=== PATIENT | female | born 1995 | race African-American/Black ===

== ENCOUNTER 2022-04-06 07:03 | Emergency (ER) | payer MEDICAID, SELFPAY ==
[2022-04-06 07:05] VITALS: BP 117/90; PULSE 64; RESP 16; TEMP 36.4; O2SAT 100; BMI 24.3
--- NOTE | 2022-04-06 07:19 | EX.ED.DYSGE1 ---
HPI History of Present Illness Chief Complaint: Nausea/Vomiting/Diarrhea Detail of Chief Complaint: Nausea, diarrhea with abdominal pain Informant: patient Onset/Context/Timing Onset: Today (The diarrhea started today) and Days (The abdominal pain is a chronic issue and has been worked up.) Context: Sudden Onset Timing: Intermittent Quality: Crampy Location: Mostly upper abdomen Current Severity: Gone Maximum Severity: Moderate Worsened by: Nothing Relieved by: Nothing Associated Symptoms Associated Symptoms: Nausea and diarrhea Narrative Narrative: Patient is a 26-year-old female who is seropositive for rheumatoid arthritis who has undergone outpatient work-up through the [facility] for her abdominal pain. In February she had an elevated lipase. Ultrasound was obtained. There was no abnormality noted of the pancreas. These test were performed on March 12. Patient presently complains of nausea. She denies vomiting. She denies fever, chills night sweats. She does complain of thirst dry mouth. She had a blueberry at 0600. She has not had anything to eat since last evening. She does endorse diarrhea. She had one episode this morning. There was no blood or mucus in the diarrhea. She states her chiropractor was ill. She last saw her chiropractor 2 to 3 weeks ago. She also complains of lightheadedness has been intermittent over the past several days. She denies headache, visual, ocular auditory symptoms. She denies urologic symptoms. Prior similar symptoms: Yes Recent Illness/Hospitalization: Yes [facility] Medical History Rheumatoid arthritis Home Medications famotidine 20 mg tablet (Pepcid) 20 mg PO BID 04/06/22 [History Last Taken Unknown] golimumab 50 mg/0.5 mL subcutaneous pen injector (Simponi) mg subcut QMONTH 04/06/22 [History Last Taken Unknown] Allergy/AdvReac Type Severity Reaction Status Date / Time No Known Allergies Allergy Verified 04/06/22 07:07 Surgical History no surgical history no surgical history Social History (Updated 04/06/22 @ 07:[address] Tommy Gould MD) household members: none Smoking Status: Never smoker substance use type: does not use ROS ROS ED Constitutional Constitutional ED: Denies chills, fever(s), subjective, sweats or weight loss Eyes Eyes: Denies blurry vision or change in vision ENT ENT ED: Denies ear pain, rhinorrhea or sore throat Cardiovascular Cardiovascular: Denies chest pain or palpitations Respiratory/Chest Respiratory/Chest: Denies cough, dyspnea or dyspnea on exertion Gastrointestinal Gastrointestinal: Reports abdominal pain, diarrhea and nausea; Denies constipation, melena or vomiting Genitourinary Genitourinary ED: Denies dysuria, hematuria or urinary frequency Musculoskeletal Musculoskeletal: Reports arthralgias and other Details: Patient denies joint swelling. ; Denies back pain, myalgias or neck pain Integumentary Denies rash Neurologic Neurologic: Reports weakness; Denies headache(s) or paresthesias Psychiatric Psychiatric: Reports anxiety and other Details: Per outside records patient has history of generalized anxiety disorder. Endocrine Endocrinology: Denies cold intolerance or heat intolerance Hematologic/Lymphatic Hematologic/Lymphatic: Reports systems reviewed and no addt'l complaints, except as documented EXAM Physical Exam Const Vital Signs: 04/06/22 07:05 Temperature 97.6 F L Temperature Source Temporal Pulse Rate 64 Respiratory Rate 16 Blood Pressure 117/90 H Blood Pressure Mean 99 Pulse Ox 100 Oxygen Delivery Method Room Air Positive well nourished and well developed General Appearance ED: well developed and NAD; Negative for cyanotic, diaphoretic or pallor HEENT Reports dry mucous membranes HEENT Narrative: Head is atraumatic normocephalic. Ears normal. Nares patent. There is no drainage. Posterior pharynx is normal. Mouth ED: Yes dry mucous membranes Mouth: dry mucous membranes Eyes PERRL and EOMs intact bilaterally General Eye ED: Negative for pale conjunctiva or scleral icterus Neck no lymphadenopathy, supple and no JVD Resp normal respiratory effort and clear to auscultation bilaterally Cardio regular rate, regular rhythm, S1 normal heart sound, S2 normal heart sound and no murmurs GI normal to inspection, nondistended, normoactive bowel sounds, non-tender, non-distended and no masses; Negative for hepatosplenomegaly Auscultation: hypoactive bowel sounds Back/Spine no CVA tenderness Back/Spine Narrative: Inspection of the back is normal Extremity normal to inspection General Extremety ED: Negative for edema or tenderness General Extremity: Negative for edema Neuro oriented x3, CN's II-XII intact bilaterally and no sensory deficits noted Sensorium / Orientation: alert Psych Mood & Affect: depressed Skin no rashes or lesions noted, no wounds and skin turgor normal General Skin Exam: Negative for jaundice or pallor MDM MDM MDM Narrative Medical decision making narrative: Patient had labs in February. BUN and creatinine on March 12 were normal. Transaminases and bilirubin were normal. Because patient had slight elevation lipase ultrasound of the abdomen right upper quadrant was obtained. Pancreas had a normal sonographic appearance. Liver was normal. Right kidney was negative for hydronephrosis. Gallbladder was normal. Patient had H. pylori test which was negative as well. Patient presents with decreased appetite and diarrhea. Clinically she is mildly dehydrated with dry buccal mucosa and tongue. Since she reports orthostatic symptoms and has not had anything to eat or drink since last night because she claims to feel nauseous anytime she attempts to eat an IV was placed. She will see 1 L of normal saline. She received Zofran for her nausea and Imodium for her diarrhea. Laboratory studies were not repeated since patient is under the age of 40, on no diuretics or immunosuppressive meds and based on literature labs are not indicated. Plan is to reassess after IV infusion. Patient was reassessed at 0855. Patient states she is no longer nauseous. She has had no diarrhea. Her lightheadedness has improved. The liter has not completely infused. Will discharge after the liter of normal saline has infused. Discharge Plan Triage Chief Complaint: Nausea/Vomiting/Diarrhea ED Provider: Tommy Gould Dx/Rx/DC Orders Clinical Impression: Abdominal pain, Nausea alone, Diarrhea, Acute dehydration, Orthostatic dizziness Instructions: ED Diarrhea, Unknown Cause Prescriptions: No Action famotidine [Pepcid] 20 mg Tablet 20 mg PO BID Simponi 50 mg/0.5 mL Pen Injector SUBCUT QMONTH Primary Care Provider: Chetna Healy [employer]OUS [employer]ION[employer]IES TE[employer]ER Referrals: Chetna Healy [employer]OUS EXCEPTIONALITIES TEACHER, [employer]OUS [employer]IONALITIES TEACHER-[facility] [Primary Care Provider] - 1-2 Days if not improving Disposition Disposition: Home, Self Care
[2022-04-06] MEDS: Loperamide 2 MG Capsule 4 MG PO (07:20)
[2022-04-06] MEDS: 0.9% Normal Saline 1,000 ML 1000 ML IV (07:29)
[2022-04-06] MEDS: Ondansetron 4 MG/2 ML Vial IV (07:30)
[2022-04-06 09:46] VITALS: BP 108/86; PULSE 69; RESP 16; O2SAT 99
== END 2022-04-06 09:47 | disposition home or self-care (01) ==
PROVIDERS: Emergency Provider Emergency Medicine; PCP Nurse Practitioner; Visit Provider Emergency Medicine
DX: R10.9 Unspecified abdominal pain (principal); M06.9 Rheumatoid arthritis, unspecified; E86.0 Dehydration; R42 Dizziness and giddiness; R19.7 Diarrhea, unspecified; R11.2 Nausea with vomiting, unspecified
CPT/HCPCS: 96361; 96374; 99283; J7030; A4216; J2405

== ENCOUNTER → 2023-04-01 | Outpatient (CLI) | payer MEDICAID, SELFPAY ==
--- OUTSIDE RECORDS SUMMARY | 2023-04-01 08:59 | XMS RPT_ITS | CCD ---
Author Name Unknown Address [address] [place] [address] Organization [facility] Care Team Providers [employer] Guard Name Role Phone Roberto HARTLEY, Travis Galan Primary Care Provider [phone] OLDER, CHETNA Referring Unavailable ALEJANDRO, SHABNAM Primary Care Unavailable Roberto HARTLEY, Travis Galan Primary Care Provider [phone] Older, Chetna M Unavailable Davonte Graves Unavailable Unavailabl e ANAHI BAIG Referring Unavailable ALEJANDRO, SHABNAM Primary Care Unavailable HALLEY COHN Attending Unavailable ALEJANDRO, SHABNAM Primary Care Unavailable OLDER, CHETNA Referring Unavailable ALEJANDRO, SHABNAM Primary Care Unavailable OLDER, CHETNA Attending Unavailable ALEJANDRO, SHABNAM Primary Care Unavailable OLDER, CHETNA Referring Unavailable ALEJANDRO, SHABNAM Primary Care Unavailable OLDER, CHETNA Referring Unavailable ALEJANDRO, SHABNAM Primary Care Unavailable OLDER, CHETNA Attending Unavailable ANAHI BAIG Referring Unavailable ALEJANDRO, SHABNAM Primary Care Unavailable ANAHI BAIG Referring Unavailable ALEJANDRO, SHABNAM Primary Care Unavailable ANAHI BAIG Attending Unavailable ANAHI BAIG Referring Unavailable ALEJANDRO, SHABNAM Primary Care Unavailable ALEJANDRO, SHABNAM Primary Care Unavailable OLDER, CHETNA Attending Unavailable ALEJANDRO, SHABNAM Attending Unavailable ALEJANDRO, SHABNAM Primary Care Unavailable ALEJANDRO, SHABNAM Primary Care Unavailable HALLEY COHN Referring Unavailable ANAHI BAIG Attending Unavailable ALEJANDRO, SHABNAM Primary Care Unavailable OLDER, CHETNA Referring Unavailable ALEJANDRO, SHABNAM Primary Care Unavailable OLDER, CHETNA Referring Unavailable ALEJANDRO, SHABNAM Primary Care Unavailable OLDER, CHETNA Attending Unavailable Franchesca Salinas Attending Unavailable ALEJANDRO, SHABNAM Primary Care Unavailable LISA GAGNON Attending Unavailable ALEJANDRO, SHABNAM Primary Care Unavailable ALEJANDRO, SHABNAM Primary Care Unavailable LISA GAGNON Attending Unavailable ALEJANDRO, SHABNAM Primary Care Unavailable MANJU COOL Attending Unavailable ALEJANDRO, SHABNAM Primary Care Unavailable Star, Dr. Davonte Mullen Attending Una rayo Steven, Franchescarhett Carey Attending Unavailab kimberly SALINAS MD, FRANCHESCA Attending Unavailable NICHOLE DAWKINS Referring Unavailyohannes SALINAS MD, FRANCHESCA Attending Unavailable BRAD HARTLEY, FRANCHESCA Referring Unavailable [employer]ITEK AGRISCIENCE TECHNOLOGY INSTRUCTOR, NATHALIE Attending Unavailable BSEISO , FRANCHESCA Attending Unavailable [employer] AGRISCIENCE TECHNOLOGY INSTRUCTOR, NATHALIE Attending Unavailable [employer] AGRISCIENCE TECHNOLOGY INSTRUCTOR, NATHALIE Referring Unavailable BSESUZY HARTLEY, FRANCHESCA Attending Unavailable Allergies Allergy Classification Reported Allergen(s) Allergy Type Date of Onset Reaction(s) Facility (20 sources) inFLIXimab; Translations: [INFLIXIMAB] Drug Allergy 1 Shortness of Breath [facility] (20 sources) levocetirizine; Translations: [LEVOCETIRIZINE] Drug Allergy 1 Rash [facility] (20 sources) pecan allergenic extract; Translations: [PECAN NUT] Drug Allergy 1 GI Upset [facility] (20 sources) sulfaSALAzine; Translations: [SULFASALAZINE] Drug Allergy 1 Rash [facility] (20 sources) Sulfonamides (Antibiotic); Translations: [SULFA (SULFONAMIDE ANTIBIOTICS)] Drug Intolerance 1 [facility] (1 source) inFLIXimab Drug Allergy Other [facility] (1 source) Sulfacetamide Drug Allergy Other [facility] Medications Current Medications Medication Drug Class(es) Dates Sig (Normalized) Sig (Original) chlorhexidine gluconate 1.2 mg/ml mouthwash (2 sources) Start: 07-30-2022 End: 08-29-2022 Chlorhexidine Gluconate (PERIOGARD) 0.12 % solution Use 15 mL as instructed twice daily. Rinse around mouth for 30 seconds then expectorate 900 mL 0 07/30/2022 08/29/2022 Active Completed/Discontinued Medications Medication Drug Class(es) Dates Sig (Normalized) Sig (Original) golimumab (20 sources) Tumor Necrosis Factor Micah golimumab (SIMPONI A MOJGAN INTRAVENOUS) Inject intravenously. IV treatment every 8 weeks. 0 Active Problems Active Problems Problem Classification Problem Date Documented Da te Episodic/Chronic Abdominal pain (10 sources) Upper abdominal pain; Translations: [Upper abdominal pain, unspecified] Onset: 03-12-2022 Episodic Anxiety disorders (20 sources) Generalized anxiety disorder; Translations: [Generalized anxiety disorder] Onset: 03-28-2021 03-28-2021 Chronic Cardiac dysrhythmias (20 sources) Postural orthostatic tachycardia syndrome ; Translations: [Other specified cardiac arrhythmias] Onset: 02-22-2021 02-22-2021 Chronic Disorders of teeth and jaw (5 sources) Pain; Translations: [Dental caries, unspecified] Onset: 08-08-2022 Episodic Mood disorders (20 sources) Depressive disorder; Translations: [Depression] Onset: 01-07-2004 03-28-2021 Chronic Other aftercare (3 sources) Patient encounter status; Translations: [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] Episodic Other circulatory disease (1 source) Feeling of lump in throat; Translations: [Other specified symptoms and signs involving the circulatory and respiratory systems] Episodic Other connective tissue disease (2 sources) Pain in right arm; Translations: [Pain in right arm] Episodic Other connective tissue disease (1 source) Pain of left hand; Translations: [Pain in left hand] Episodic Other connective tissue disease (1 source) Pain in right hand; Translations: [Pain in right hand] Episodic Other nervous system disorders (2 sources) Finding of sensation of upper limb; Translations: [Paresthesia of skin] Episodic Other nervous system disorders (1 source) Paresthesia; Translations: [Paresthesia of skin] Episodic Other non-traumatic joint disorders (2 sources) Pain of right wrist; Translations: [Pain in right wrist] Episodic Residual codes; unclassified (1 source) Encounter for prophylactic measures, unspecified; Translations: [Encounter for preventive measure] Onset: 10-25-2022 Episodic Rheumatoid arthritis and related disease (20 sources) Seropositive rheumatoid arthritis; Translations: [Rheumatoid arthritis with rheumatoid factor, unspecified] Onset: 07-11-2020 Chronic Thyroid disorders (20 sources) Goiter; Translations: [Nontoxic goiter, unspecified] Onset: 11-24-2021 Chronic Unclassified (2 sources) FELL AT WORK 07-24-2022 Past or Other Problems Problem Classification Problem Date Documented Da te Episodic/Chronic Nausea and vomiting (5 sources) Nausea; Translations: [Nausea] Onset: 03-12-2022 Episodic Other circulatory disease (1 source) Other specified symptoms and signs involving the circulatory and respiratory systems; Translations: [Globus sensation] Onset: 11-24-2021 Episodic Other connective tissue disease (1 source) Pain in left hand; Translations: [Pain in left hand] Onset: 12-22-2021 Episodic Other connective tissue disease (1 source) Pain in right arm; Translations: [Pain of right upper extremity] Onset: 12-22-2021 Episodic Other connective tissue disease (1 source) Pain in right hand; Translations: [Pain in right hand] Onset: 12-22-2021 Episodic Other nervous system disorders (2 sources) Paresthesia of skin; Translations: [Tingling of right upper extremity] Onset: 12-22-2021 Episodic Other non-traumatic joint disorders (1 source) Pain in right wrist; Translations: [Right wrist pain] Onset: 12-22-2021 Episodic Syncope (4 sources) Syncope; Translations: [Syncope and collapse] Onset: 07-24-2022 07-24-2022 Episodic Results Test Name Value Interpretation Reference Range Facil ity Vital Signs Date Time Vital Sign Value Performing Clinician Facility 10-25-2022 09:40-0400 Diastolic blood pressure 85 mm[Hg] Avelina Adame [facility] Work Phone: [facility] 10-25-2022 09:40-0400 Heart rate 87 /min Avelina Adame [facility] Work Phone: [facility] 10-25-2022 09:40-0400 Systolic blood pressure 113 mm[Hg] Avelina Adame [facility] Work Phone: [facility] 07-24-2022 17:05-0400 Diastolic blood pressure 79 mm[Hg] Chetna Older Other Phone: [facility] 07-24-2022 17:05-0400 Heart rate 72 /min Chetna Older Other Phone: [facility] 07-24-2022 17:05-0400 Respiratory rate 16 /min Chetna Older Other Phone: [facility] 07-24-2022 17:05-0400 SaO2% (BldA) [Mass fraction] 100 % Chetna Older Other Phone: [facility] 07-24-2022 17:05-0400 Systolic blood pressure 101 mm[Hg] Chetna Older Other Phone: [facility] 07-24-2022 14:54-0400 Body height 157.4 cm Chetna Older Other Phone: [facility] 07-24-2022 14:54-0400 Body weight 55 kg Chetna Older Other Phone: [facility] 06-28-2022 10:33-0400 Body height 157.5 cm Anahi Baig MD Work Phone: [facility] 06-28-2022 10:33-0400 Body weight 58.06 kg Anahi Baig MD Work Phone: [facility] 06-28-2022 10:33-0400 Diastolic blood pressure 81 mm[Hg] Anahi Baig MD Work Phone: [facility] 06-28-2022 10:33-0400 Heart rate 84 /min Anahi Baig MD Work Phone: [facility] 06-28-2022 10:33-0400 SaO2% (BldA) [Mass fraction] 100 % Anahi Baig MD Work Phone: [facility] 06-28-2022 10:33-0400 Systolic blood pressure 113 mm[Hg] Anahi Baig MD Work Phone: [facility] 04-18-2022 15:30-0500 Diastolic blood pressure 77 mm[Hg] Halley Cohn MD Work Phone: [facility] 04-18-2022 15:30-0500 Heart rate 86 /min Halley Cohn MD Work Phone: [facility] 04-18-2022 15:30-0500 Respiratory rate 16 /min Halley Cohn MD Work Phone: [facility] 04-18-2022 15:30-0500 SaO2% (BldA) [Mass fraction] 100 % Halley Cohn MD Work Phone: [facility] 04-18-2022 15:30-0500 Systolic blood pressure 122 mm[Hg] Halley Cohn MD Work Phone: [facility] 04-18-2022 15:06-0500 Body temperature 97 [degF] Halley Cohn MD Work Phone: [facility] 04-13-2022 10:38-0500 Body height 157.5 cm Pac 3 Work Phone: [facility] 04-13-2022 10:38-0500 Body weight 59.88 kg Pac 3 Work Phone: [facility] 03-15-2022 13:04-0500 Body height 96.5 cm Anahi Baig MD Work Phone: [facility] 03-15-2022 13:04-0500 Body weight 63.23 kg Anahi Baig MD Work Phone: [facility] 03-15-2022 13:04-0500 Diastolic blood pressure 79 mm[Hg] Anahi Baig MD Work Phone: [facility] 03-15-2022 13:04-0500 Heart rate 93 /min Anahi Baig MD Work Phone: [facility] 03-15-2022 13:04-0500 Systolic blood pressure 118 mm[Hg] Anahi Baig MD Work Phone: [facility] 03-12-2022 13:44-0500 Body weight 63.96 kg Chetnamaribell Healy HUMAN RESOURCES ADVISOR.AGRISCIENCE TECHNOLOGY INSTRUCTOR Work Phone: [facility] 03-12-2022 13:44-0500 Diastolic blood pressure 91 mm[Hg] Chetna Older HUMAN RESOURCES ADVISOR.AGRISCIENCE TECHNOLOGY INSTRUCTOR Work Phone: [facility] 03-12-2022 13:44-0500 Heart rate 86 /min Chetna Older HUMAN RESOURCES ADVISOR.AGRISCIENCE TECHNOLOGY INSTRUCTOR Work Phone: [facility] 03-12-2022 13:44-0500 Respiratory rate 12 /min Chetna Older HUMAN RESOURCES ADVISOR.AGRISCIENCE TECHNOLOGY INSTRUCTOR Work Phone: [facility] 03-12-2022 13:44-0500 Systolic blood pressure 124 mm[Hg] Chetna Older HUMAN RESOURCES ADVISOR.AGRISCIENCE TECHNOLOGY INSTRUCTOR Work Phone: [facility] 01-09-2022 08:42-0500 Diastolic blood pressure 74 mm[Hg] Lisa Mary DMD Work Phone: [facility] 01-09-2022 08:42-0500 Heart rate 69 /min Lisa Mary DMD Work Phone: [facility] 01-09-2022 08:42-0500 Systolic blood pressure 98 mm[Hg] Lisa Mary DMD Work Phone: [facility] 12-20-2021 11:42-0400 Body weight 63.05 kg Chetna Older HUMAN RESOURCES ADVISOR.AGRISCIENCE TECHNOLOGY INSTRUCTOR Work Phone: [facility] 12-20-2021 11:42-0400 Diastolic blood pressure 78 mm[Hg] Chetna Older HUMAN RESOURCES ADVISOR.AGRISCIENCE TECHNOLOGY INSTRUCTOR Work Phone: [facility] 12-20-2021 11:42-0400 Heart rate 68 /min Chetna Older HUMAN RESOURCES ADVISOR.AGRISCIENCE TECHNOLOGY INSTRUCTOR Work Phone: [facility] 12-20-2021 11:42-0400 Respiratory rate 14 /min Chetna Older HUMAN RESOURCES ADVISOR.AGRISCIENCE TECHNOLOGY INSTRUCTOR Work Phone: [facility] 12-20-2021 11:42-0400 Systolic blood pressure 108 mm[Hg] Chetna Older HUMAN RESOURCES ADVISOR.AGRISCIENCE TECHNOLOGY INSTRUCTOR Work Phone: [facility] 07-11-2021 15:19-0400 Body temperature 98.01 [degF] Treatment Stro Work Phone: [facility] 07-11-2021 15:19-0400 Body weight 66.59 kg Treatment Stro Work Phone: [facility] 07-11-2021 15:19-0400 Diastolic blood pressure 54 mm[Hg] Treatment Stro Work Phone: [facility] 07-11-2021 15:19-0400 Heart rate 82 /min Treatment Stro Work Phone: [facility] 07-11-2021 15:19-0400 Respiratory rate 16 /min Treatment Stro Work Phone: [facility] 07-11-2021 15:19-0400 SaO2% (BldA) [Mass fraction] 96 % Treatment Stro Work Phone: [facility] 07-11-2021 15:19-0400 Systolic blood pressure 108 mm[Hg] Treatment Stro Work Phone: [facility] Encounters Encounter Date Encounter Type Care Provider Facility Start: 02-08-2023 End: 02-08-2023 ambulatory NATHALIE VITEK HALEY Facility:[facility] Start: 02-07-2023 End: 02-07-2023 ambulatory NATHALIE VITEK HALEY Facility:[facility] Start: 11-27-2022 End: 12-26-2022 ambulatory FRANCHESCA SALINAS MD Facility:[facility] Start: 10-25-2022 End: 10-25-2022 ambulatory TRAVIS ALEJANDRO Facility:[id number] Start: 10-25-2022 Encounter for dental examination and cleaning without abnormal findings TRAVIS ALEJANDRO [facility] Start: 10-25-2022 End: 10-25-2022 Patient encounter procedure Avelina Adame [facility] Work Phone: Dentistry Procedures Date Procedure Procedure Detail Performing Clinician Start: 10-25-2022 PERIODIC ORAL EVALUATION - ESTABLISHED PATIENT Ralf Gamboa DMD Work Phone: Start: 10-25-2022 PERIODONTAL PROBING Ralf Gamboa DMD Work Phone: Start: 10-25-2022 PROPHYLAXIS - ADULT Ralf Gamboa DMD Work Phone: Start: 08-08-2022 LIMITED ORAL EVALUATION - PROBLEM FOCUSED Ralf Douglas Bee DMD Work Phone: Start: 07-24-2022 End: 07-24-2022 EKG impression Davonte Graves Start: 07-06-2022 Ct abdomen w/contrast material Anahi hernandez MD Work Phone: Start: 04-18-2022 Esophagogastroduodenoscopy transoral diagnostic Anahi Baig MD Work Phone: Start: 03-12-2022 Us abdominal real time w/image limited Chetna Older HUMAN RESOURCES ADVISOR.AGRISCIENCE TECHNOLOGY INSTRUCTOR Work Phone: Start: 01-09-2022 2D ORAL/FACIAL PHOTOGRAPHIC IMAGE OBTAINED INTRA-ORALLY OR EXTRA-ORALLY Ralf Douglas Bee DMD Work Phone: Start: 01-09-2022 COMPREHENSIVE ORAL EVALUATION - NEW OR ESTABLISHED PATIENT Ralf Douglas Bee DMD Work Phone: Start: 12-22-2021 Nerve conduction studies 5-6 studies Chetna Older HUMAN RESOURCES ADVISOR.AGRISCIENCE TECHNOLOGY INSTRUCTOR Work Phone: Start: 11-24-2021 Us soft tissue head & neck real time imge docm Chetna Older HUMAN RESOURCES ADVISOR.AGRISCIENCE TECHNOLOGY INSTRUCTOR Work Phone: Plan of Treatment Date Care Activity Detail Author Start: 01-10-2027 Dental X-Ray: FMX/[facility] Dental X-Ray: FMX/[facility] Start: 10-27-2023 Dental Perio Probing Dental Perio Probing [facility] Start: 10-27-2023 Dental X-Ray: [facility]-Ray: [facility] Start: 04-26-2023 Dental Oral Exam Dental Oral Exam [facility] Start: 04-26-2023 Dental Prophylaxis Dental Prophylaxis [facility] Start: 10-28-2022 PAP TESTING PAP TESTING [facility] Start: 10-26-2022 Influenza vaccination [facility] Start: 09-16-2022 Urine microalbumin profile [facility] Start: 03-12-2022 End: 05-12-2022 Amylase [Enzymatic activity/volume] in Serum or Plasma [facility] Work Phone: Immunizations Immunization Date Immunization Notes Care Provider Fa lyndon 11-09-2019 influenza virus vacc ine, unspecified formulation Ct (I-Stat) Work Phone: [facility] 10-09-2012 varicella virus vaccine Chanelle tment Stro Work Phone: [facility] Work Phone: 09-25-2012 pneumococcal polysaccharide vaccine, 23 valent Treatment Stro Work Phone: [facility] Work Phone: 09-16-2012 tetanus toxoid, redu brenda diphtheria toxoid, and acellular pertussis vaccine, adsorbed Treatment Stro Work Phone: [facility] Work Phone: 03-13-2010 influenza virus vacc ine, unspecified formulation Treatment Stro Work Phone: [facility] Work Phone: 11-24-1998 diphtheria, tetanus toxoids and acellular pertussis vaccine Treatment Stro Work Phone: [facility] Work Phone: 11-24-1998 trivalent poliovirus vaccine, live, oral Treatment Stro Work Phone: [facility] Work Phone: 10-27-1997 measles, mumps and rubella virus vaccine Treatment Stro Work Phone: [facility] Work Phone: 04-08-1995 DTP-Haemophilus influenzae type b conjugate vaccine Treatment Stro Work Phone: [facility] Work Phone: 01-01-1995 measles, mumps and rubella virus vaccine Treatment Stro Work Phone: [facility] Work Phone: 01-01-1995 varicella virus vaccine Chanelle tment Stro Work Phone: [facility] Work Phone: 10-01-1994 hepatitis B vaccine, pediatric or pediatric/adolescent dosage Treatment Stro Work Phone: [facility] Work Phone: 07-02-1994 trivalent poliovirus vaccine, live, oral Treatment Stro Work Phone: [facility] Work Phone: 06-01-1994 DTP-Haemophilus influenzae type b conjugate vaccine Treatment Stro Work Phone: [facility] Work Phone: 03-30-1994 DTP-Haemophilus influenzae type b conjugate vaccine Treatment Stro Work Phone: [facility] Work Phone: 03-30-1994 trivalent poliovirus vaccine, live, oral Treatment Stro Work Phone: [facility] Work Phone: 01-26-1994 DTP-Haemophilus influenzae type b conjugate vaccine Treatment Stro Work Phone: [facility] Work Phone: 01-26-1994 hepatitis B vaccine, pediatric or pediatric/adolescent dosage Treatment Stro Work Phone: [facility] Work Phone: 01-26-1994 trivalent poliovirus vaccine, live, oral Treatment Stro Work Phone: [facility] Work Phone: 1993 hepatitis B vaccine, pediatric or pediatric/adolescent dosage Treatment Stro Work Phone: [facility] Work Phone: Payers Date Payer Category Payer Medicaid [employer] [place] [id number] 2019-Present [phone] [address] [address] [place] [address] Medicaid [id number] 2019 Medicaid [id number] 2019 Medicaid [id number] 2008 Unknown [id number] 1993 Unknown [id number] 1993 Unknown [id number] 1993 Unknown [id number] 1993 Unknown [id number] 1993 Unknown [id number] 1993 Unknown [id number] 1993 Unknown [id number] 1993 Unknown [id number] Social History Date Type Detail Facility Start: 11-22-2021 Tobacco smoking status NHIS Never smoked tobacco [facility] Work Phone: Start: 03-28-2021 End: 06-28-2022 Alcohol intake Current non-drinker of alcohol (finding) [facility] Start: 03-22-2021 History SDOH Alcohol Frequency 1 [facility] Start: 03-22-2021 End: 04-24-2022 History SDOH Alcohol Std Drinks 98 [facility] Start: 03-22-2021 End: 04-24-2022 History SDOH Social Connections Membership 2 [facility] Start: 03-22-2021 End: 04-24-2022 History SDOH Social Connections Living 5 [facility] Start: 03-22-2021 History SDOH Physical Activity DPW 0 [facility] Start: 1995 Sex Assigned At Not on file [facility] Start: 08-22-2021 End: 01-09-2022 Exposure to SARS-CoV-2 (event) Not sure [facility] Work Phone: Start: 11-22-2021 Tobacco use and exposure Smokeless tobacco non-user [facility] Start: 04-24-2022 History SDOH Stress 4 [facility] Tobacco smoking consumption unknown [facility] Start: 04-24-2022 End: 06-28-2022 History of Social function [facility] Start: 04-24-2022 End: 06-28-2022 Social connection and isolation panel [facility] How often do you get together with friends or relatives? Patient refused [facility] Do you belong to any clubs or organizations such as jain groups, unions, fraternal or athletic groups, or school groups? No [facility] Are you now , , , , never or living with a partner? [facility] Do you feel stress - tense, restless, nervous, or anxious, or unable to sleep at night because your mind is troubled all the time - these days [OSQ] Rather much [facility] (I/We) worried wheth er (my/our) food would run out before (I/we) got money to buy more. DK or Refused [facility] Clinical Notes 09-16-2012 to 11-27-2022 Avelina Adame, [facility] - 10/25/2022 10:01 AM Manju Johnson DDS - 10/25/2022 9:40 AM EDTTelephone Encounter - Neisha Abdalla RN - 09/12/2022 4:44 PM EDTPatient Instructions Note Date & Type Note Facility 11-27-2022 Note Chief Complaint INITIAL CONSULT - LOW WBC Reason for Consultation Leukopenia History of Present Illness This 26-year-old patient referred by rheumatology to evaluate leukopenia. She has been diagnosed with rheumatoid arthritis since 2017 and had in the past been treated with methotrexate but in 2020 switch to Humira and then Remicade without response and sulfasalazine with poor tolerance and has been since been switched to Simponi every 2 months since 2020. She had had normal blood counts and in January 2022 had a white count of 4.9, hemoglobin of 13.3, hematocrit of 41.1, and platelets of 378,000. Over the following few months, in March, May, and July 2022, her white count had dropped to 3.1, 3.1, and 3.4 respectively with percent neutrophils of 33% on each of these occasions and absolute neutrophil count of about 1.1. She had not been exposed to new medications, had not had any significant illness or recurrent infections during that time. Of note her hemoglobin had also dropped during the same period from 13.3 to 12.4 between January 2022 and July 2022. Her platelets remain normal in the 300,000 range. There has been no monocytosis. On the most recent CBC however on August 30, 2022, she was noted to have normalization of the white count at 5.8 with ANC of 2000, and a borderline lymphocytosis at 3.1 with percent lymphocytes at 53.4%. The patient is generally asymptomatic. Her rheumatoid arthritis has been well controlled with Simponi. Denies any fever chills night sweats self-palpated adenopathy unexplained weight loss abdominal pain fullness discomfort diarrhea edema in the legs paresthesias. She does describe some Raynaud's-like phenomenon upon cold exposure. No abnormal bleeding or easy bruisability. Of note she had a recent CT scan of the abdomen pelvis on July 09, 2022 that showed 6 mm hypodense pancreatic uncinate process lesion possibly a pseudocyst. No adenopathy or splenomegaly. The patient also underwent EGD in March 2022 which were normal. Review of Systems Constitutional: Negative except HPI Eyes: Negative except HPI ENMT: Negative except HPI Respiratory: Negative except HPI Cardiovascular: Negative except HPI Gastrointestinal: Negative except HPI Genitourinary: Negative except HPI Heme: Negative except HPI Endocrine: Negative except HPI Integumentary: Negative except HPI Immunologic: Negative except HPI Musculoskeletal: Negative except HPI Neurologic: Negative except HPI Psychiatric: Negative except HPI Physical Exam Vitals & Measurements T: 36.1 ?C (Tympanic) HR: 97 (Peripheral) RR: 16 BP: 94/74 SpO2: 98% WT: 58.4 kg WT: 58.4 kg (Dosing) BMI: 22.81 General: Alert oriented not in distress HEENT: Atraumatic normocephalic, oral mucosa shows a whitish layer over the tongue possible thrush. Neck: No adenopathy Respiratory: Equal air entry Cardiac: Regular rate and rhythm normal S1-S2 Abdomen: No organomegaly or masses Extremities: No edema Neurological: Grossly nonfocal Psychiatric: Quiet slightly flat affect Assessment/Plan This Visit Diagnosis 1. Leukopenia D72.819 This has evolved in March and seems to have reversed in July this year. Patient said she has never had this before. I told her low white count and rheumatoid arthritis has a variety of causes including the disease itself as part of an autoimmune phenomenon, or the effect of the medication like Simponi or a superimposed other etiology like a bone marrow disorder or marrow infiltration. There is a modest drop in hemoglobin during the same during the same duration since March but not enough to be significant anemia yet. At this point will obtain basic work-up as listed below but also include hepatitis C antibody and peripheral blood flow cytometry for clonal B cells. She might have a thrush prescribed nystatin. We will also consider HIV and thyroid function after the initial work-up is back. I will inspect the blood smear. We will see her back in about 8 weeks. Ordered: B12 FOLATE, ROUTINE, *Est. 09/18/2022, Order for future visit, Dx: Leukopenia / Seropositive rheumatoid arthritis CBCWD, ROUTINE, *Est. 09/18/2022, Order for future visit, Dx: Leukopenia / Seropositive rheumatoid arthritis COMPMETA, ROUTINE, *Est. 09/18/2022, Order for future visit, Dx: Leukopenia / Seropositive rheumatoid arthritis MATTHEW, ROUTINE, *Est. 09/18/2022, Leukopenia / Seropositive rheumatoid arthritis Hep B Core Antibodies Total, ROUTINE, *Est. 09/18/2022, Order for future visit, Dx: Leukopenia / Seropositive rheumatoid arthritis HEPATITIS B ANTIGEN, ROUTINE, *Est. 09/18/2022, Order for future visit, Dx: Leukopenia / Seropositive rheumatoid arthritis SHAR Quant with FLC, ROUTINE, *Est. 09/18/2022, Order for future visit, Dx: Leukopenia / Seropositive rheumatoid arthritis LDH, ROUTINE, *Est. 09/18/2022, Order for future visit, Dx: Leukopenia / Seropositive rheumatoid arthritis MISC SEND1, ROUTINE, *Est. 09/18/2022, flow for leukemia nad lymphoma Pa (more content not included)... [facility] 10-29-2022 Note HNO ID: [id number] Author: Ralf Gamboa DMD Service: ? Author Type: Dentist Type: Progress Notes Filed: 10/29/2022 5:36 PM Note Text: I have seen and evaluated the patient and discussed the case with the resident physician. I agree with the assessment and plan as documented in the resident?s note. Ralf Gamboa, KELVIN [facility] 10-25-2022 Note HNO ID: [id number] Author: Avelina Adame RDH Service: ? Author Type: Dental Hygienist Type: Progress Notes Filed: 10/25/2022 10:37 AM Note Text: DENTAL HYGIENE VISIT: Adult Prophylaxis 10/25/2022 Rosa Mares HISTORY OF PRESENT ILLNESS: Patient is a 26 [address] of Dr[address] Cool , who presents today for Prophylaxis: 4 bitewings, probing, periodic exam. Periodic exam performed by Dr. Cool . Pain Status: No pain (0 out of 10).. Chief Complaint: Dental Hygiene Visit. Blood pressure 113/85, pulse 87, last menstrual period 03/26/2022.. PAST MEDICAL HISTORY: Reviewed Medical History: No change since last visit. INFORMED CONSENT: The procedure including risks, benefits, options and personnel performing the procedure was discussed with the patient. There are no contraindications to the procedure. Rosa Mares expressed understanding and agreed to proceed. OBJECTIVE: Oral hygiene fair . Localized areas of calculus. Hairy tongue. Discussed brushing her tongue. Recommended an electric toothbrush. ASSESSMENT/TREATMENT: Re-care appointment: 4BWX, Dental Prophylaxis , and Periodic Oral Exam with Avelina Adame Plaque: moderate. Calculus: slight/light. Oral Hygiene Instructions: brushing technique, flossing, brush 2 times per day, and power brush. Last Panoramic Taken: 01/09/22 PLAN: New decay/restorative needs: None. Next Hygiene visit: 6 month prophy, 4 bitewings, periodic exam . Avelina Adame RDH [facility] 10-25-2022 Note HNO ID: [id number] Author: Manju Cool DDS Service: ? Author Type: Resident Type: Progress Notes Filed: 10/25/2022 10:37 AM Note Text: Summary: Hygiene Check I have read and reviewed the hygiene notes and agree with the content. Patient screened for oral cancer and TMD and informed of findings. Oral Cancer Screening: Negative. TMJ: WNL New DDS recommended: - Calculus noted on BW's on 30, 3, 19 - No new decay noted - Reviewed symptoms of #4 with patient, tooth #4 and gums around mandaeism are doing well. Previous treatment plan reviewed and all necessary changes have been made based on today's examination. Confirmed diagnosis and discussed treatment needs with the patient. Patient given opportunity to ask questions with all answered. Manju Cool, LACEY [facility] 10-25-2022 History of Presen t illness Narrative DENTAL HYGIENE VISIT: Adult Prophylaxis 10/25/2022 Rosa Mares HISTORY OF PRESENT ILLNESS: Patient is a 26 [address] of Dr[address] Cool , who presents today for Prophylaxis: 4 bitewings, probing, periodic exam. Periodic exam performed by Dr. Cool . Pain Status: No pain (0 out of 10).. Chief Complaint: Dental Hygiene Visit. Blood pressure 113/85, pulse 87, last menstrual period 03/26/2022.. PAST MEDICAL HISTORY: Reviewed Medical History: No change since last visit. INFORMED CONSENT: The procedure including risks, benefits, options and personnel performing the procedure was discussed with the patient. There are no contraindications to the procedure. Rosa Mares expressed understanding and agreed to proceed. OBJECTIVE: Oral hygiene fair . Localized areas of calculus. Hairy tongue. Discussed brushing her tongue. Recommended an electric toothbrush. ASSESSMENT/TREATMENT: Re-care appointment: 4BWX, Dental Prophylaxis , and Periodic Oral Exam with Avelina Adame Plaque: moderate. Calculus: slight/light. Oral Hygiene Instructions: brushing technique, flossing, brush 2 times per day, and power brush. Last Panoramic Taken: 01/09/22 PLAN: New decay/restorative needs: None. Next Hygiene visit: 6 month prophy, 4 bitewings, periodic exam . Avelina Adame RDH Summary: Hygiene Check I have read and reviewed the hygiene notes and agree with the content. Patient screened for oral cancer and TMD and informed of findings. Oral Cancer Screening: Negative. TMJ: WNL New DDS recommended: - Calculus noted on BW's on 30, 3, 19 - No new decay noted - Reviewed symptoms of #4 with patient, tooth #4 and gums around mandaeism are doing well. Previous treatment plan reviewed and all necessary changes have been made based on today's examination. Confirmed diagnosis and discussed treatment needs with the patient. Patient given opportunity to ask questions with all answered. Manju Cool DDS documented in this encounter [facility] 09-26-2022 Note HNO ID: [id number] Author: Ralf Gamboa DMD Service: ? Author Type: Dentist Type: Progress Notes Filed: 09/26/2022 5:12 PM Note Text: I have seen and evaluated the patient and discussed the case with the resident physician. I agree with the assessment and plan as documented in the resident?s note. Ralf Gamboa DMD [facility] 09-26-2022 Note HNO ID: [id number] Author: Manju Cool DDS Service: ? Author Type: Resident Type: Progress Notes Filed: 09/26/2022 4:34 PM Note Text: Summary: Restorative: 4MO Composite Cheondoism Adjustment: #4- MO SUBJECTIVE: CC: _I was told at my hygiene appointment that my filling is rough and it might be why my gums hurt around there_ . OBJECTIVE: Pt identity confirmed. Reviewed/Updated Med Hx. Clinical evaluation completed. Radiographic evaluation: Findings: Radiographs used from hygiene on 08/08/22. No radiographs made today. The procedure including risks, benefits, options and personnel performing the procedure was discussed with the patient. There are no contraindications to the procedure. Rosa Mares expressed understanding and agreed to proceed. ASSESSMENT: Patient was told at previous hygiene visit that her mandaeism on tooth #4 (MO) was rough and possibly a food trap causing increased irritation to her gums. The patient wanted assessment of the mandaeism to see if anything could be done to have the best prognosis of the mandaeism. The path of withdraw from the lingual interproximal contact of tooth #4 is very thin and wedge-like, displaying an easy target for food and other debris to become trapped inter-proximally between #4 and #5. Took photo of tooth (uploaded to chart) and showed patient via radiographs and intraoral photo that the mandaeism is sealed well and shows no sign of needing replaced. However, that the mandaeism contour on the lingual could be a food trap and further irritate her gums. PLAN: (Plan A) Explained to patient that we could adjust the contour on the lingual of tooth #4 to better adapt and decrease the risk of food becoming trapped and gingival irritation. Explained to patient that if this did not solve the issue, (Plan B) that a slot prep could be made on the mesial and additional restorative material could be added to also provide a good prognosis for the tooth. These plans were described to patient in depth, patient given opportunity to address questions. Patient was informed that if Plan A and Plan B did not go accordingly then Plan C of replacing the mandaeism entirely could occur. Patient chose to do Plan A today and the tooth was adjusted on the lingual with a flame carbide. Patient was not anesthetized. Occlusion and contact was confirmed. Patient dismissed in a pleasant manner. Patient informed that if the adjustment completed today was not suffice to inform us at her hygiene appointment (scheduled this month), and we can continue to Plan B or Plan C to address the mandaeism. Next Hygiene visit: 4BWX, Dental Prophylaxis , and Periodic Oral Exam. Assisted by: Doris Hwang Supervised by: Dr. Delbert Cool, LACEY [facility] 09-12-2022 Miscellaneous Notes Attempted to reach the patient at the contact number that they provided [phone] (home) . Unable to speak with patient so without identifying the patient the following information was left on their voice mail: Date of procedure, location and report time A message was left informing the patient/patient field support representative they must have a responsible adult accompany them to their procedure; and remain in the endoscopy area until they are discharged. Failure to have a responsible adult accompany the patient to their procedure appointment prevents the use of sedation or anesthesia for their procedure; and can result in cancellation of the procedure NPO instructions were reviewed. Instructions to contact their primary care provider regarding their medications and which medications to stop in preparation for their procedure Instructions to completely read and follow the written instructions that they recieved regarding their procedure. Number to call with questions or concerns [phone] Number to call to cancel their procedure [phone] Neisha Abdalla RN documented in this encounter [facility] 08-08-2022 Note HNO ID: [id number] Author: Ralf Gamboa DMD Service: ? Author Type: Dentist Type: Progress Notes Filed: 08/08/2022 6:39 PM Note Text: I have seen and evaluated the patient and discussed the case with the resident physician. I agree with the assessment and plan as documented in the resident?s note. Ralf Gamboa DMD [facility] 08-08-2022 Note HNO ID: [id number] Author: Lisa Gagnon DMD Service: ? Author Type: Resident Type: Progress Notes Filed: 08/08/2022 5:40 PM Note Text: Limited Dental Examination: NAME: Rosa Mares MR#: [id number] DATE: 08/08/2022 HISTORY OF PRESENT ILLNESS: This is a 26 year old female who presents with a complaint of pain around gums on the upper right. OBJECTIVE: General appearance: healthy, alert, pleasant, mild distress. Limited dental exam: No external buccal swelling, No submandibular or submental swelling, and No trismus Void #4 MO with food impaction between #4 and #5 Radiographs taken:Panoramic No, FMX No, Bitewings Yes, Pa # 4 ASSESSMENT: Patient reports pain on the upper right and bleeding when flossing and brushing. Upon conversation it is discovered patient is brushing teeth too aggressively. Oral hygiene counseling given. Void noted on buccal of existing composite #4 MO. Food impaction noted. Patient sensitive to probing around #4. Cheondoism to be redone with symptoms to be monitored. PLAN: #4 MO. Continue Chlorhexidine PRN. RX: None. Pt discharged alert and oriented. NV: # 4 MO Assisted by: Fabiola Shannon Supervised by: Dr. Bee Gagnon DMD [facility] 08-08-2022 History of Presen t illness Narrative I have seen and evaluated the patient and discussed the case with the resident physician. I agree with the assessment and plan as documented in the resident s note. Ralf Gamboa DMD Images from the original note were not included. Limited Dental Examination: NAME: Rosa Mares MR#: [id number] DATE: 08/08/2022 HISTORY OF PRESENT ILLNESS: This is a 26 year old female who presents with a complaint of pain around gums on the upper right. OBJECTIVE: General appearance: healthy, alert, pleasant, mild distress. Limited dental exam: No external buccal swelling, No submandibular or submental swelling, and No trismus Void #4 MO with food impaction between #4 and #5 Radiographs taken:Panoramic No, FMX No, Bitewings Yes, Pa # 4 ASSESSMENT: Patient reports pain on the upper right and bleeding when flossing and brushing. Upon conversation it is discovered patient is brushing teeth too aggressively. Oral hygiene counseling given. Void noted on buccal of existing composite #4 MO. Food impaction noted. Patient sensitive to probing around #4. Cheondoism to be redone with symptoms to be monitored. PLAN: #4 MO. Continue Chlorhexidine PRN. RX: None. Pt discharged alert and oriented. NV: # 4 MO Assisted by: Fabiola Shannon Supervised by: Dr. Bee Gagnon DMD documented in this encounter [facility] 07-30-2022 Miscellaneous Notes Returned patient's call. Patient reports pain around gingiva around isolated maxillary tooth that began around 3-4 weeks ago. Patient believes a gap has formed where tooth and gingiva should be. Patient to be seen for follow-up in office to assess. Patient given opportunity to ask questions with all answered. RX sent to patient's pharmacy Chlorhexidine Gluconate (PERIOGARD) 0.12 % solution Use 15 mL as instructed twice daily. Rinse around mouth for 30 seconds then expectorate Normal, Disp-900 mL, R-0 Lisa Gagnon DMD documented in this encounter [facility] 07-30-2022 Miscellaneous Notes Left voicemail to return patient's call. Lisa Gagnon DMD documented in this encounter [facility] 07-06-2022 Note HNO ID: [id number] Author: RT Saravanan(R) Service: ? Author Type: Medical Claims Processor Type: Progress Notes Filed: 07/06/2022 2:53 PM Note Text: Radiology Service Progress Note DATE OF SERVICE: July 06, 2022 TIME: 2:52 PM PATIENT IDENTITY VERIFICATION COMPLETED USING TWO (2) STANDARD IDENTIFIERS: Name and Date of confirmed by patient verbally. FALL SCREENING: Has the patient had 2 falls in the last year or 1 fall with injury or currently using an Ambulatory Assistive Device (Walker, Cane, Wheelchair, Crutches, etc.)? No PATIENT GENDER DATA: Female. status: : No status: NO. PATIENT RELEVANT IMPLANT DATA REVIEWED: Yes ALLERGIES: Reviewed and unchanged CONTRAST ALLERGY: NO. EXAM: CT -CONTRAST INDUCED NEPHROPATHY RISK FACTORS: Not applicable CREATININE: Creatinine Date Value Ref Range Status 03/12/2022 0.76 0.58 - 0.96 mg/dL Final 07/11/2021 0.93 0.58 - 0.96 mg/dL Final 01/12/2021 0.89 0.58 - 0.96 mg/dL Final Estimated Glomerular Filtration Rate Date Value Ref Range Status 03/12/2022 110 >=60 mL/min/1.73m? Final Comment: Estimated Glomerular Filtration Rate (eGFR) is calculated using the 2020 CKD-EPI creatinine equation. This equation utilizes serum creatinine, sex, and age as parameters. The creatinine assay has traceable calibration to isotope dilution-mass spectrometry. Refer to KDIGO guidelines for clinical interpretation. In patients with unstable renal function, e.g. those with acute kidney injury, the eGFR may not accurately reflect actual GFR. eGFR- Date Value Ref Range Status 01/12/2021 >60 Final Comment: Note: On 04/22/2021, the eGFR calculation will be updated to the NKF-ASN Task Force recommended 2020 CKD-EPI creatinine equation which does not include a race variable. For more information or to access a 2020 CKD-EPI calculator, visit the National Kid[employer] website at kidney.org/professionals/kdoqi/g fr_calculator. P.O.C.T. RESULTS: POC done: Yes, See Lab Tab July 06, 2022 TREATMENT: N/A PERIPHERAL IV DATA: Ambulatory: A peripheral IV was started in the Left antecubital site with a Angio cath: 22 gauge. RADIOLOGY DEPARTMENT: CT; Exam(s) Completed: Abdomen SIGNATURE: RT Renetta(R) PATIENT NAME: Rosa Mares DATE: July 06, 2022 TIME: 2:52 PM [facility] 07-06-2022 History of Presen t illness Narrative Radiology Service Progress Note DATE OF SERVICE: July 06, 2022 TIME: 2:52 PM PATIENT IDENTITY VERIFICATION COMPLETED USING TWO (2) STANDARD IDENTIFIERS: Name and Date of confirmed by patient verbally. FALL SCREENING: Has the patient had 2 falls in the last year or 1 fall with injury or currently using an Ambulatory Assistive Device (Walker, Cane, Wheelchair, Crutches, etc.)? No PATIENT GENDER DATA: Female. status: : No status: NO. PATIENT RELEVANT IMPLANT DATA REVIEWED: Yes ALLERGIES: Reviewed and unchanged CONTRAST ALLERGY: NO. EXAM: CT -CONTRAST INDUCED NEPHROPATHY RISK FACTORS: Not applicable CREATININE: Creatinine Date Value Ref Range Status 03/12/2022 0.76 0.58 - 0.96 mg/dL Final 07/11/2021 0.93 0.58 - 0.96 mg/dL Final 01/12/2021 0.89 0.58 - 0.96 mg/dL Final Estimated Glomerular Filtration Rate Date Value Ref Range Status 03/12/2022 110 >=60 mL/min/1.73m Final Comment: Estimated Glomerular Filtration Rate (eGFR) is calculated using the 2020 CKD-EPI creatinine equation. This equation utilizes serum creatinine, sex, and age as parameters. The creatinine assay has traceable calibration to isotope dilution-mass spectrometry. Refer to KDIGO guidelines for clinical interpretation. In patients with unstable renal function, e.g. those with acute kidney injury, the eGFR may not accurately reflect actual GFR. eGFR- Date Value Ref Range Status 01/12/2021 >60 Final Comment: Note: On 04/22/2021, the eGFR calculation will be updated to the NKF-ASN Task Force recommended 2020 CKD-EPI creatinine equation which does not include a race variable. For more information or to access a 2020 CKD-EPI calculator, visit the National Kidney Foundation website at kidney.org/professionals/kdoqi/g fr_calculator. P.O.C.T. RESULTS: POC done: Yes, See Lab Tab July 06, 2022 TREATMENT: N/A PERIPHERAL IV DATA: Ambulatory: A peripheral IV was started in the Left antecubital site with a Angio cath: 22 gauge. RADIOLOGY DEPARTMENT: CT; Exam(s) Completed: Abdomen SIGNATURE: RT Renetta(R) PATIENT NAME: Rosa Mares DATE: July 06, 2022 TIME: 2:52 PM documented in this encounter [facility] 06-28-2022 Note HNO ID: [id number] Author: Anahi Baig MD Service: ? Author Type: Physician Type: Progress Notes Filed: 06/28/2022 1:55 PM Note Text: [facility] 06/28/2022 CHIEF COMPLAINT: RUQ abdominal pain HISTORY OF PRESENT ILLNESS: Rosa Mares is a 26 year old female with a history of POTS (diagnosed in 2019), RA (on Simponi) presenting to GI clinic for management of RUQ abdominal pain. Patient was referred by her PCP for abdominal pain. Pain started December 2021. Pain is located RUQ / epigastric / Right back. Timing of the pain is intermittent, was becoming more frequent and severe in time. Can be associated with eating or drinking. Intermittent fasting and improved diet helped symptoms. Associated symptoms include nausea without vomiting. Having daily regular bowel movements. --- Interval history Since last visit, patient underwent EGD 04/18/2022 was normal. Biopsies from stomach negative for H pylori, biopsies from duodenum were negative for celiac sprue. She continues to have the pain. Is taking pepcid BID which has helped somewhat but not fully. Pain continues to be assd with eating / drinking but can also be sporadic. PAST MEDICAL HISTORY: PAST MEDICAL HISTORY Diagnosis Date Arthritis Asthma Resolved - outgrew Dysthymic disorder Resolved Family history of diabetes mellitus (DM) 09/16/2012 Family history of hypertension 09/16/2012 POTS (postural orthostatic tachycardia syndrome) PTSD (post-traumatic stress disorder) ACTIVE PROBLEM LIST Depression Seropositive Rheumatoid Arthritis (Hcc) Pots (Postural Orthostatic Tachycardia Syndrome) Kenny (Generalized Anxiety Disorder) Thyroid Nodule PAST SURGICAL HISTORY: PAST SURGICAL HISTORY Procedure Laterality Date PAST SURGICAL HISTORY OF sinus surgery PAST SURGICAL HISTORY OF wisdom teeth ALLERGIES: ALLERGIES Allergen Reactions Pecan Nut GI Upset Nausea. Remicade [Inflixima* Shortness of Breath Chest pain. Sulfa (Sulfonamide * Rash Sulfasalazine Rash Xyzal [Levocetirizi* Rash FAMILY HISTORY: FAMILY HISTORY Problem Relation Age of Onset other (gestational diabetes) Mother Hypertension Father Other Sleep Disorder Sister mental health other (other) Brother mental health Other Sleep Disorder Brother mental health Diabetes Maternal Grandmother Hypertension Maternal Grandmother Hypertension Maternal Grandfather Prostate Cancer Maternal Grandfather Hypertension Paternal Grandmother Hypertension Paternal Grandfather Emphysema Paternal Grandfather SOCIAL HISTORY: Social History Tobacco Use Smoking status: Never Smokeless tobacco: Never Vaping Use Vaping Use: Never used Substance Use Topics Alcohol use: No Drug use: No CURRENT MEDICATIONS (reviewed w/ pt): Current Outpatient Medications Medication Sig sertraline (ZOLOFT) 25 mg tablet Take 1 tablet by mouth once daily. hydrOXYzine HCl (ATARAX) 25 mg tablet Take 1 tablet by mouth every 6 hours as needed for itching/rash or anxiety. golimumab (SIMPONI ARIA INTRAVENOUS) Inject intravenously. IV treatment every 8 weeks. No current facility-administered medications for this visit. PHYSICAL EXAM: Vital signs: BP 113/81 Pulse 84 Ht 157.5 cm (5' 2 ) Wt 58.1 kg (128 lb) LMP 03/26/2022 (Approximate) SpO2 100% BMI 23.41 kg/m? Physical Exam Constitutional: Appearance: Normal appearance. HENT: Head: Normocephalic and atraumatic. Eyes: General: No scleral icterus. Conjunctiva/sclera: Conjunctivae normal. Cardiovascular: Rate and Rhythm: Normal rate. Pulmonary: Effort: Pulmonary effort is normal. No respiratory distress. Skin: Coloration: Skin is not jaundiced or pale. Neurological: Mental Status: She is alert and oriented to person, place, and time. Psychiatric: Mood and Affect: Mood normal. Behavior: Behavior normal. LAB DATA (discussed results w/ pt): Appointment on 03/12/2022 Component Date Value Ref Range Status Protein, Total 03/12/2022 7.3 6.3 - 8.0 g/dL Final Albumin 03/12/2022 4.2 3.9 - 4.9 g/dL Final Calcium, Total 03/12/2022 9.4 8.5 - 10.2 mg/dL Final Bilirubin, Total 03/12/2022 0.3 0.2 - 1.3 mg/dL Final Alkaline Phosphatase 03/12/2022 71 34 - 123 U/L Final AST 03/12/2022 17 13 - 35 U/L Final ALT 03/12/2022 9 7 - 38 U/L Final Glucose 03/12/2022 88 74 - 99 mg/dL Final The [place] [employer] (ADA) provides guidance for cutoff values for fasting glucose and random glucose. The ADA defines fasting as no caloric intake for at least 8 hours. Fasting plasma glucose results between 100 to 125 mg/dL indicate increased risk for diabetes (prediabetes). Fasting plasma glucose results greater than or equal to 126 mg/dL meet the criteria for diagnosis of diabetes. In the absence of unequivocal hyperglycemia, results should be confirmed by repeat testing. In a patient with classic symptoms of hyperglycem (more content not included)... 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 I would like you to start IBGuard available over the counter. Please take this daily. You can schedule the CT scan today to make sure you do not have chronic pancreatitis. Continue Pepcid. documented in this encounter [facility] 06-28-2022 History of Presen t illness Narrative [facility] 06/28/2022 CHIEF COMPLAINT: RUQ abdominal pain HISTORY OF PRESENT ILLNESS: Rosa Mares is a 26 year old female with a history of POTS (diagnosed in 2019), RA (on Simponi) presenting to GI clinic for management of RUQ abdominal pain. Patient was referred by her PCP for abdominal pain. Pain started December 2021. Pain is located RUQ / epigastric / Right back. Timing of the pain is intermittent, was becoming more frequent and severe in time. Can be associated with eating or drinking. Intermittent fasting and improved diet helped symptoms. Associated symptoms include nausea without vomiting. Having daily regular bowel movements. --- Interval history Since last visit, patient underwent EGD 04/18/2022 was normal. Biopsies from stomach negative for H pylori, biopsies from duodenum were negative for celiac sprue. She continues to have the pain. Is taking pepcid BID which has helped somewhat but not fully. Pain continues to be assd with eating / drinking but can also be sporadic. PAST MEDICAL HISTORY: PAST MEDICAL HISTORY Diagnosis Date Arthritis Asthma Resolved - outgrew Dysthymic disorder Resolved Family history of diabetes mellitus (DM) 09/16/2012 Family history of hypertension 09/16/2012 POTS (postural orthostatic tachycardia syndrome) PTSD (post-traumatic stress disorder) ACTIVE PROBLEM LIST Depression Seropositive Rheumatoid Arthritis (Hcc) Pots (Postural Orthostatic Tachycardia Syndrome) Kenny (Generalized Anxiety Disorder) Thyroid Nodule PAST SURGICAL HISTORY: PAST SURGICAL HISTORY Procedure Laterality Date PAST SURGICAL HISTORY OF sinus surgery PAST SURGICAL HISTORY OF wisdom teeth ALLERGIES: ALLERGIES Allergen Reactions Pecan Nut GI Upset Nausea. Remicade [Inflixima* Shortness of Breath Chest pain. Sulfa (Sulfonamide * Rash Sulfasalazine Rash Xyzal [Levocetirizi* Rash FAMILY HISTORY: FAMILY HISTORY Problem Relation Age of Onset other (gestational diabetes) Mother Hypertension Father Other Sleep Disorder Sister mental health other (other) Brother mental health Other Sleep Disorder Brother mental health Diabetes Maternal Grandmother Hypertension Maternal Grandmother Hypertension Maternal Grandfather Prostate Cancer Maternal Grandfather Hypertension Paternal Grandmother Hypertension Paternal Grandfather Emphysema Paternal Grandfather SOCIAL HISTORY: Social History Tobacco Use Smoking status: Never Smokeless tobacco: Never Vaping Use Vaping Use: Never used Substance Use Topics Alcohol use: No Drug use: No CURRENT MEDICATIONS (reviewed w/ pt): Current Outpatient Medications Medication Sig sertraline (ZOLOFT) 25 mg tablet Take 1 tablet by mouth once daily. hydrOXYzine HCl (ATARAX) 25 mg tablet Take 1 tablet by mouth every 6 hours as needed for itching/rash or anxiety. golimumab (SIMPONI ARIA INTRAVENOUS) Inject intravenously. IV treatment every 8 weeks. No current facility-administered medications for this visit. PHYSICAL EXAM: Vital signs: BP 113/81 Pulse 84 Ht 157.5 cm (5' 2 ) Wt 58.1 kg (128 lb) LMP 03/26/2022 (Approximate) SpO2 100% BMI 23.41 kg/m Physical Exam Constitutional: Appearance: Normal appearance. HENT: Head: Normocephalic and atraumatic. Eyes: General: No scleral icterus. Conjunctiva/sclera: Conjunctivae normal. Cardiovascular: Rate and Rhythm: Normal rate. Pulmonary: Effort: Pulmonary effort is normal. No respiratory distress. Skin: Coloration: Skin is not jaundiced or pale. Neurological: Mental Status: She is alert and oriented to person, place, and time. Psychiatric: Mood and Affect: Mood normal. Behavior: Behavior normal. LAB DATA (discussed results w/ pt): Appointment on 03/12/2022 Component Date Value Ref Range Status Protein, Total 03/12/2022 7.3 6.3 - 8.0 g/dL Final Albumin 03/12/2022 4.2 3.9 - 4.9 g/dL Final Calcium, Total 03/12/2022 9.4 8.5 - 10.2 mg/dL Final Bilirubin, Total 03/12/2022 0.3 0.2 - 1.3 mg/dL Final Alkaline Phosphatase 03/12/2022 71 34 - 123 U/L Final AST 03/12/2022 17 13 - 35 U/L Final ALT 03/12/2022 9 7 - 38 U/L Final Glucose 03/12/2022 88 74 - 99 mg/dL Final The [place] [employer] (ADA) provides guidance for cutoff values for fasting glucose and random glucose. The ADA defines fasting as no caloric intake for at least 8 hours. Fasting plasma glucose results between 100 to 125 mg/dL indicate increased risk for diabetes (prediabetes). Fasting plasma glucose results greater than or equal to 126 mg/dL meet the criteria for diagnosis of diabetes. In the absence of unequivocal hyperglycemia, results should be confirmed by repeat testing. In a patient with classic symptoms of hyperglycemia or hyperglycemic crisis, random plasma glucose results greater than or equal to 200 mg/dL meet the criteria for diagnosis of diabetes. Reference: Standards of Medical Care in Diabetes 2016, [place] [employer]. Diabetes Care. 2016.39(Suppl 1). BUN 03/12/2022 12 7 - 21 mg/dL Final Creatinine 03/12/2022 0.76 0.58 - 0.96 mg/dL Final Sodium 03/12/2022 139 136 - 144 mmol/L Final Potassium 03/12/2022 4.0 3.7 - 5.1 mmol/L Final Chloride 03/12/2022 100 97 - 105 mmol/L Final CO2 03/12/2022 28 22 - 30 mmol/L Final Anion Gap 03/12/2022 11 9 - 18 mmol/L Final Estimated Glomerular Filtration Ra* 03/12/2022 110 >=60 mL/min/1.73m Final Estimated Glomerular Filtration Rate (eGFR) is calculated using the 2020 CKD-EPI creatinine equation. This equation utilizes serum creatinine, sex, and age as parameters. The creatinine assay has traceable calibration to isotope dilution-mass spectrometry. Refer to KDIGO guidelines for clinical interpretation. In patients with unstable renal function, e.g. those with acute kidney injury, the eGFR may not accurately reflect actual GFR. WBC 03/12/2022 5.07 3.70 - 11.00 k/uL Final RBC 03/12/2022 4.51 3.90 - 5.20 m/uL Final Hemoglobin 03/12/2022 13.0 11.5 - 15.5 g/dL Final Hematocrit 03/12/2022 38.9 36.0 - 46.0 % Final MCV 03/12/2022 86.3 80.0 - 100.0 fL Final MCH 03/12/2022 28.8 26.0 - 34.0 pg Final MCHC 03/12/2022 33.4 30.5 - 36.0 g/dL Final RDW-CV 03/12/2022 13.2 11.5 - 15.0 % Final Platelet Count 03/12/2022 379 150 - 400 k/uL Final MPV 03/12/2022 11.7 9.0 - 12.7 fL Final Neut% 03/12/2022 34.1 % Final Abs Neut 03/12/2022 1.73 1.45 - 7.50 k/uL Final Lymph% 03/12/2022 50.3 % Final Abs Lymph 03/12/2022 2.55 1.00 - 4.00 k/uL Final Pitkin% 03/12/2022 9.1 % Final Abs Pitkin 03/12/2022 0.46 <0.87 k/uL Final Eosin% 03/12/2022 4.9 % Final Abs Eosin 03/12/2022 0.25 <0.46 k/uL Final Baso% 03/12/2022 1.6 % Final Abs Baso 03/12/2022 0.08 <0.11 k/uL Final Immature Gran % 03/12/2022 0.0 % Final Abs Immature Gran 03/12/2022 <0.03 <0.10 k/uL Final NRBC 03/12/2022 0.0 /100 WBC Final Absolute nRBC 03/12/2022 <0.01 <0.01 k/uL Final Diff Type 03/12/2022 Auto Final H. pylori IgG, Qualitative 03/12/2022 Negative Negative Final Cannot exclude H. pylori infection if the specimen collected 3-4 weeks after onset of symptoms. Amylase 03/12/2022 138 (A) 30 - 104 U/L Final Lipase 03/12/2022 21 16 - 61 U/L Final IMAGING/PROCEDURES Reviewed in MyChart IMPRESSION/PLAN (discussed w/ pt): Rosa Mares is a 26 year old female with a history of POTS (diagnosed in 2019), RA presenting to GI clinic for management of RUQ abdominal pain. # RUQ abdominal pain # Nausea - EGD 04/18/2022 was normal. Biopsies from stomach negative for H pylori, biopsies from duodenum were negative for celiac sprue. - Given slightly elevated amylase and radiation to back, recommend CTAP to assess for chronic pancreatitis - Otherwise, would suspect that she has functional dyspepsia - Recommend trial of IBGuard. - Continue Pepcid BID FOLLOW-UP APPTS: No future appointments. - RTC in 3-4 months Anahi Baig MD documented in this encounter [facility] 06-05-2022 Note HNO ID: [id number] Author: Chetna Healy APRN.[employer] Service: ? Author Type: Nurse Practitioner Type: Progress Notes Filed: 06/05/2022 10:15 AM Note Text: This Team Access Model visit is a virtual encounter. It required patient-provider interaction for the medical decision making as documented below. I have communicated my name and active licensure. The patient's identity and physical location were verified at the time of this visit. Either the patient or their legal field support representative has been informed of the risks and benefits of -- and alternatives to -- treatment through a remote evaluation and consents to proceed with the evaluation remotely. Patient Location: [place] CC: Patient presents with: Medication Follow-up HPI Rosa Mares is a 26 year old female who is contacted today for a virtual visit. This is an established patient of Dr. Travis Alejandro MD. Patient was seen 6 weeks ago and started on Zoloft 50 mg daily. Patient reports significant improvement in depression and anxiety. She has only been taking 25 mg because the 50 mg dose made her feel hyper. Denies any side effects on the 25 mg dose. Denies suicidal thoughts or plan. Is seeing counselor and feels the relationship is very beneficial. REVIEW OF SYSTEMS See HPI PAST MEDICAL HISTORY Diagnosis Date Arthritis Asthma Resolved - outgrew Dysthymic disorder Resolved Family history of diabetes mellitus (DM) 09/16/2012 Family history of hypertension 09/16/2012 POTS (postural orthostatic tachycardia syndrome) PTSD (post-traumatic stress disorder) PAST SURGICAL HISTORY Procedure Laterality Date PAST SURGICAL HISTORY OF sinus surgery PAST SURGICAL HISTORY OF wisdom teeth ALLERGIES Pecan Nut, Remicade [Infliximab], Sulfa (Sulfonamide Antibiotics), Sulfasalazine, and Xyzal [Levocetirizine] MEDICATIONS hydrOXYzine HCl (ATARAX) 25 mg tablet Take 1 tablet by mouth every 6 hours as needed for itching/rash or anxiety. famotidine (PEPCID) 20 mg tablet Take 1 tablet by mouth twice daily. golimumab (SIMPONI ARIA INTRAVENOUS) Inject intravenously. IV treatment every 8 weeks. sertraline (ZOLOFT) 25 mg tablet Take 1 tablet by mouth once daily. FAMILY HISTORY Problem Relation Age of Onset other (gestational diabetes) Mother Hypertension Father Other Sleep Disorder Sister mental health other (other) Brother mental health Other Sleep Disorder Brother mental health Diabetes Maternal Grandmother Hypertension Maternal Grandmother Hypertension Maternal Grandfather Prostate Cancer Maternal Grandfather Hypertension Paternal Grandmother Hypertension Paternal Grandfather Emphysema Paternal Grandfather Social History Tobacco Use Smoking status: Never Smokeless tobacco: Never Vaping Use Vaping Use: Never used Substance Use Topics Alcohol use: No Drug use: No EXAM: Virtual visit completed using video, limited exam completed. GENERAL: alert and appropriate, in no distress, well-hydrated, well nourished, and happy, smiling, interactive ASSESSMENT/PLAN: 1. Depression, unspecified depression type - ICD9: 311, ICD10: F32.A (primary diagnosis) Patient doing really well on Zoloft 25 mg daily. Will continue with current dose and she will let me know if it needs increased - Reviewed benefits of sleep hygeine, diet and exercise - Follow-up in 4 months or sooner as needed - Instructed patient to contact office or [id number] after-hours promptly should condition worsen or any new symptoms appear. - Counseling Center [facility] and after hours crisis line - SERTRALINE 25 MG TABLET 2. KENNY (generalized anxiety disorder) - ICD9: 300.02, ICD10: F41.1 As above Prescription instructions reviewed with patient as applicable. Potential red flag symptoms discussed with the patient. Reviewed appropriate action plan to take if red flag symptoms occur. Patient agreeable to treatment plan. During this patient visit I have spent approximately 12 minutes in counseling regarding treatment options and medications. Chetna Healy APRN.[facility] 04-25-2022 Note HNO ID: [id number] Author: Travis Alejandro MD Service: ? Author Type: Physician Type: Progress Notes Filed: 04/25/2022 4:14 PM Note Text: DISTANCE HEALTH VISIT Rosa Mares's identity was confirmed. The limitations of telemedicine were reviewed, and verbal consent was obtained for this encounter. This encounter is not related to previous similar encounter within the past 7 days. No face to face visit is planned in the next day in connection to this encounter. This telemedicine encounter was accomplished via ZOOM. Rosa was having recurrence of depressed moods. This is our first meeting. She established care here last year thru our [facility]. She had depression and anxiety diagnosed in [facility] in 2020. She was treated with Lexapro, which lost efficacy; Cymbalta, which was not effective; and combination of Zoloft and hydroxyzine which was effective. She was doing well so she weaned herself off the medications by the time she established here last year. She was seeing Ana Capellan [facility] based in [place] remotely every week. She had no history of suicide attempt. She was seeing a turner in in the [place] area for her RA treatments. ACTIVE PROBLEM LIST Depression Seropositive Rheumatoid Arthritis (Hcc) Pots (Postural Orthostatic Tachycardia Syndrome) Kenny (Generalized Anxiety Disorder) Thyroid Nodule Social History Tobacco Use Smoking status: Never Smokeless tobacco: Never Vaping Use Vaping Use: Never used Substance Use Topics Alcohol use: No Drug use: No ALLERGIES Allergen Reactions Pecan Nut GI Upset Nausea. Remicade [Inflixima* Shortness of Breath Chest pain. Sulfa (Sulfonamide * Rash Sulfasalazine Rash Xyzal [Levocetirizi* Rash Current Outpatient Medications Medication Sig famotidine (PEPCID) 20 mg tablet Take 1 tablet by mouth twice daily. golimumab (SIMPONI ARIA INTRAVENOUS) Inject intravenously. IV treatment every 8 weeks. No current facility-administered medications for this visit. PE: Alert, not ill, mood depressed, speech normal, behavior normal, thought content normal. CP PHQ9 04/25/2022 Little interest or pleasure 2 - More than half the days Feeling down, depressed, hopeless 2 - More than half the days Trouble falling or staying asleep, sleeping too much 1 - Several days Feeling tired, having little energy 0 - Not at all Poor appetite or overeating 1 - Several days Feeling bad about yourself, failure or you have let yourself/family down 3 - Nearly every day Trouble concentrating on things 1 - Several days Moving or speaking so slowly, or fidgety or restless 0 - Not at all Thoughts that you would be better off , or of hurting yourself in some way 1 - Several days How difficult have these problems made things Somewhat difficult Interpretation of Total Score 10-14 Moderate depression ASSESSMENT/PLAN: 1. Depression, unspecified depression type - ICD9: 311, ICD10: F32.A (primary diagnosis) Shared medical decision making was done. She will continue remote counseling. She did not recall sertraline dose, but she was not maxxed out . - SERTRALINE 50 MG TABLET 2. KENNY (generalized anxiety disorder) - ICD9: 300.02, ICD10: F41.1 - HYDROXYZINE HCL 25 MG TABLET Follow up here in 6 weeks. Travis Alejandro MD [facility] 04-25-2022 History of Presen t illness Narrative DISTANCE HEALTH VISIT Rosa Mares's identity was confirmed. The limitations of telemedicine were reviewed, and verbal consent was obtained for this encounter. This encounter is not related to previous similar encounter within the past 7 days. No face to face visit is planned in the next day in connection to this encounter. This telemedicine encounter was accomplished via ZOOM. Rosa was having recurrence of depressed moods. This is our first meeting. She established care here last year thru our [employer]. She had depression and anxiety diagnosed in [facility] in 2020. She was treated with Lexapro, which lost efficacy; Cymbalta, which was not effective; and combination of Zoloft and hydroxyzine which was effective. She was doing well so she weaned herself off the medications by the time she established here last year. She was seeing Ana [facility] based in [place] remotely every week. She had no history of suicide attempt. She was seeing a turner in in the [facility] for her RA treatments. ACTIVE PROBLEM LIST Depression Seropositive Rheumatoid Arthritis (Hcc) Pots (Postural Orthostatic Tachycardia Syndrome) Kenny (Generalized Anxiety Disorder) Thyroid Nodule Social History Tobacco Use Smoking status: Never Smokeless tobacco: Never Vaping Use Vaping Use: Never used Substance Use Topics Alcohol use: No Drug use: No ALLERGIES Allergen Reactions Pecan Nut GI Upset Nausea. Remicade [Inflixima* Shortness of Breath Chest pain. Sulfa (Sulfonamide * Rash Sulfasalazine Rash Xyzal [Levocetirizi* Rash Current Outpatient Medications Medication Sig famotidine (PEPCID) 20 mg tablet Take 1 tablet by mouth twice daily. golimumab (SIMPONI ARIA INTRAVENOUS) Inject intravenously. IV treatment every 8 weeks. No current facility-administered medications for this visit. PE: Alert, not ill, mood depressed, speech normal, behavior normal, thought content normal. CP PHQ9 04/25/2022 Little interest or pleasure 2 - More than half the days Feeling down, depressed, hopeless 2 - More than half the days Trouble falling or staying asleep, sleeping too much 1 - Several days Feeling tired, having little energy 0 - Not at all Poor appetite or overeating 1 - Several days Feeling bad about yourself, failure or you have let yourself/family down 3 - Nearly every day Trouble concentrating on things 1 - Several days Moving or speaking so slowly, or fidgety or restless 0 - Not at all Thoughts that you would be better off , or of hurting yourself in some way 1 - Several days How difficult have these problems made things Somewhat difficult Interpretation of Total Score 10-14 Moderate depression ASSESSMENT/PLAN: 1. Depression, unspecified depression type - ICD9: 311, ICD10: F32.A (primary diagnosis) Shared medical decision making was done. She will continue remote counseling. She did not recall sertraline dose, but she was not maxxed out . - SERTRALINE 50 MG TABLET 2. KENNY (generalized anxiety disorder) - ICD9: 300.02, ICD10: F41.1 - HYDROXYZINE HCL 25 MG TABLET Follow up here in 6 weeks. Travis Alejandro MD documented in this encounter [facility] 04-18-2022 History and physical note UPDATED HISTORY AND PHYSICAL EXAMINATION SERVICE DATE: 04/18/2022 SERVICE TIME: 2:11 PM SERVICE: Gastroenterology PHYSICAL EXAM MUST BE COMPLETED ON ADMISSION The History and Physical (completed in the past 30 days) has been reviewed and the patient has been examined. The contents accurately reflect the patient's condition with the following additions or revisions since the H&P was completed. Denies chest pain, heart palpations, dizziness, fatigue, shortness of breath, cough, wheezing, headache, fever, abdominal pain, nausea, vomiting. Adequate time was taken to answer patient's questions. They have no further complaints at this time. PAST MEDICAL HISTORY Diagnosis Date Arthritis Asthma Resolved - outgrew Dysthymic disorder Resolved Family history of diabetes mellitus (DM) 09/16/2012 Family history of hypertension 09/16/2012 POTS (postural orthostatic tachycardia syndrome) PTSD (post-traumatic stress disorder) Depression Seropositive Rheumatoid Arthritis (Hcc) Pots (Postural Orthostatic Tachycardia Syndrome) Kenny (Generalized Anxiety Disorder) Thyroid Nodule Planned procedure(s) for today is/are: EGD DIAGNOSTIC Medication reconciliation list reviewed in [facility]. Past medical history, past surgical history, social history and family history reviewed and updated in [facility]. ALLERGIES Allergen Reactions Pecan Nut GI Upset Nausea. Remicade [Inflixima* Shortness of Breath Chest pain. Sulfa (Sulfonamide * Rash Sulfasalazine Rash Xyzal [Levocetirizi* Rash See epic for vitals LMP 03/29/2022 (Approximate) BP 110/79 Pulse 107 Temp 36.4 C (97.5 F) (Temporal Artery) Resp 12 LMP 03/26/2022 (Approximate) SpO2 100% Examination indicates no changes. On examination today: Lungs: Clear to auscultation bilaterally. Heart: TACHYCARDIC , Normal S1/S2, No murmurs, rubs, gallops or thrills appreciated. Abdomen: BS+ in all quadrants, abdomen is soft, non tender, and without guarding. Assessment: ABDOMINAL PAIN Plan: EGD DIAGNOSTIC This H&P can be found in the Electronic Medical Record dated: 04/13/22 DONE BY Sasha Rey PA-C SIGNATURE: Gilda Cannon PA-C PATIENT NAME: Rosa Mares DATE: April 18, 2022 TIME: 2:11 PM documented in this encounter [facility] 04-16-2022 Miscellaneous Notes Last office visit: 03/12/22 Next appointment scheduled: No future appointments scheduled at this time. Patient phones requesting refills as follows: Requested Prescriptions Pending Prescriptions Disp Refills famotidine (PEPCID) 20 mg tablet 60 tablet 0 Sig: Take 1 tablet by mouth twice daily. Please review and advise. Deanne Kwan LPN documented in this encounter [facility] 04-16-2022 Nurse Note [facility] ENDOSCOPY PRE PROCEDURE CALL Geeta. I'm calling from [facility] endoscopy to provide you with the information for your surgery/procedure tomorrow. 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 yes When anesthesia or sedation is being given: Patient instructed you must have an adult combine driver because you will not be able to work or drive for the rest of the day after your test.yes Can you please confirm the name and relationship of your combine driver. Medical transport company arranged by pt's insurance company What is the best number for your combine driver to be reached at tomorrow for updates? Will provide in am Your combine driver is allowed to wait here with you or they may drop you off and come back to pick you up. So you are prepared and comfortable on the day of your procedure, I want to make you aware of several safety measures we've put in place. You will be asked to sanitize your hands and will be provided with a mask to wear the entire time you are in our building. You may choose to bring your own masks from home. Additionally, the furniture has been rearranged to promote social distancing Patient instructed: Do not eat anything the morning of the procedure, including gum, hard candy and mints.yes Patient instructed not bring any valuables, jewelry, or gambino and wear comfortable clothing. Do not wear makeup, lotion, or finger japanese. yes Patient instructed: Please bring a list of medications including over the counter, vitamin, and herbals. If you are on inhalers, please do them in the morning before your test and bring them with you.yes Blood pressure, seizure, or thyroid medications may be taken with a couple sips of water ONLY 4 hours prior to arrival time. Is the patient on blood thinners?no If so,verify if pt contacted the prescribing doctor to see how long they may hold blood thinners prior to procedure. Are you diabetic?no If so, advise pt to contact prescribing doctor to verify if any modifications are needed for insulin and/or pills Reminder:diabetic medication instructions should be given by the patient's ordering physician. If blood sugar drops, they can have CLEAR liquids to bring it up until 3 hours prior to arrival time. Hospitalizations: No Procedure and/or bowel prep instructions given to patient and questions answered: Yes, and they verbalized their understanding of instructions given Any barriers to Patient learning (confusion? Final Inspector Truck Trailer needed?): Patient/Patient Wire Spooler responded appropriately on phone. If patient needs to reschedule please call: [phone] [facility] phone number: [phone] Type of instruction given: Verbal by telephone contact. documented in this encounter [facility] 04-13-2022 Miscellaneous Notes Patient calling with concern about her ability to find transportation to procedure on 04/18/22. Advised patient to contact her insurance company, transportation number listed on insurance card and call us with update. documented in this encounter [facility] 04-13-2022 Instructions Sasha Rey PA-C - 04/13/2022 10:47 AM EST PATIENT PREOPERATIVE INSTRUCTIONS Halley Cohn MD has scheduled you for your procedure at this surgery center: [facility]: [phone] -- [place] [id number]. Please read below carefully for your personalized instructions. Dietary Restrictions: - No solid food after midnight. - You may have 12 ounces of clear liquids (water, clear juices such as apple juice or gatorade, carbonated beverages, clear tea, black coffee, jello) until 2 hours before scheduled arrival at facility. Medications: Unless instructed differently below, stay on all of your medications until your surgery. Approved medications to take the morning of surgery with a sip of water: pepcid If you start any new medications after today's visit, please contact the surgeon's office. Blood Thinning Medications: - Stop NSAIDS (Ibuprofen, Advil, Aleve, Motrin, Celebrex, Mobic, etc.) 7 days before surgery, as directed by your surgeon. - Stop Aspirin 7 days before surgery, as directed by your surgeon. - Stop Vitamin E, ALL multi-vitamins, herbals and dietary supplements 7 days before surgery. - You may take Tylenol (Acetaminophen) or any of your pain medications that do not contain aspirin or NSAIDS as needed. Important Reminders: - Candy, mints, and tobacco products are NOT permitted the morning of surgery. - Hearing aids, dentures and glasses may be worn the morning of surgery. - NO jewelry, body piercings, makeup, hairpins or contacts are to be worn the day of surgery. If you develop symptoms such as a fever, cold, or flu, or have other changes to your health within TWO DAYS of scheduled surgery or the morning of surgery, please contact the surgery center above. Personal Belongings: -Please have photo ID and insurance cards. -If you do not have a copy of advance directives on file with us, please bring a copy with you on the day of surgery. - Leave ALL valuables and money at home or with family members. For Outpatient Procedures: - YOU MUST HAVE A RESPONSIBLE WIRE MACHINE OPERATOR TAKE YOU HOME. A SHOWER SCREEN INSTALLER OR INTERNAL MEDICINE PHYSICIAN ASSISTANT CANNOT BE MADE A RESPONSIBLE WIRE MACHINE OPERATOR. - We recommend that a responsible person stays with you overnight to take care of you. - You cannot stay in a hotel alone after outpatient surgery. You will not be permitted to have your surgery, if you do not have someone to take care of you. Arrival Time for Surgery: - The Surgery Center or hospital where you are having surgery will call the afternoon before surgery (or Saturday for Saturday surgery) with a scheduled arrival time. - If you have not heard by 4 pm, please contact the surgery center above. Please be aware that emergency situations arise, which may delay or change your surgical time. If this happens, we will notify you as soon as possible and regret any inconvenience. If you already have an Advance Directive, please fax a copy to [phone] or email to for it to be added to your chart. If you do not have an Advance Directive, you can find the appropriate form and more information at [email or web address]. We recommend that you complete the Advance Directive form found on the website and bring it with you the day of your surgery. It can be witnessed and scanned into your chart that day. Sasha Rey PA-C documented in this encounter [facility] 04-13-2022 History and physical note PREANESTHESIA CONSULT CLINIC This is a virtual visit. It required patient-provider interaction for the medical decision making as documented below. Patient has been identified by name and date of : Yes Reason for call: PACC visit Accompanied by: Self Patient name: Rosa Mares Scheduled Surgery: EGD 03/29/2022 at CHIEF COMPLAINT: Patient presents with: Anesthesia Consult HPI: This is a 26 year old female who presents with RUQ pain over the past 5 months. Episodes occurring more frequently. She also reports radiated pain to her back. She is taking pepcid with some improvement. Sometimes food triggers symptoms, but sometimes symptoms occur without eating. ACTIVE PROBLEM LIST Depression Seropositive Rheumatoid Arthritis (Hcc) Pots (Postural Orthostatic Tachycardia Syndrome) Kenny (Generalized Anxiety Disorder) Thyroid Nodule PAST MEDICAL HISTORY Diagnosis Date Arthritis Asthma Resolved - outgrew Dysthymic disorder Resolved Family history of diabetes mellitus (DM) 09/16/2012 Family history of hypertension 09/16/2012 POTS (postural orthostatic tachycardia syndrome) PTSD (post-traumatic stress disorder) PAST SURGICAL HISTORY Procedure Laterality Date PAST SURGICAL HISTORY OF sinus surgery PAST SURGICAL HISTORY OF wisdom teeth FAMILY HISTORY Problem Relation Age of Onset other (gestational diabetes) Mother Hypertension Father Other Sleep Disorder Sister mental health other (other) Brother mental health Other Sleep Disorder Brother mental health Diabetes Maternal Grandmother Hypertension Maternal Grandmother Hypertension Maternal Grandfather Prostate Cancer Maternal Grandfather Hypertension Paternal Grandmother Hypertension Paternal Grandfather Emphysema Paternal Grandfather Social History: Social History Tobacco Use Smoking status: Never Smokeless tobacco: Never Vaping Use Vaping Use: Never used Substance Use Topics Alcohol use: No Drug use: No MEDICATIONS: Current Inpatient Medications Current Outpatient Medications Medication Sig famotidine (PEPCID) 20 mg tablet Take 20 mg by mouth twice daily. golimumab (SIMPONI ARIA INTRAVENOUS) Inject intravenously. IV treatment every 8 weeks. No current facility-administered medications for this visit. ALLERGIES: ALLERGIES Allergen Reactions Pecan Nut GI Upset Nausea. Remicade [Inflixima* Shortness of Breath Chest pain. Sulfa (Sulfonamide * Rash Sulfasalazine Rash Xyzal [Levocetirizi* Rash REVIEW OF SYSTEMS: PAIN ASSESSMENT: General: No weight loss, malaise or fevers. Neuro: No history of TIA's, stroke, PROFESSOR OF RHETORIC tumor, impaired sensorium, hemiplegia, paraplegia or quadraplegia. No neurological symptoms or problems. Respiratory: No history of current cough or dyspnea, or pneumonia in the past 6 weeks. No history of respiratory/pulmonary symptoms or problems. Cardiovascular: No history of HTN requiring medication, no history of angina, CHF, [place], cardiac surgery or stents. Denies rest pain, gangrene or revascularization/amputation for PVD. No history of cardiovascular symptoms or problems. 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 : Denies, Patient's last menstrual period was 03/29/2022 (approximate). Endocrine: No history of diabetes. Has not taken steroids within the past 30 days. No history of endocrinological symptoms or problems. Hematology: No history of bleeding or clotting disorder. Pt is not taking anti-coagulation or platelet medications. No history of hematological symptoms or problems. Oncology: No history of CA metastasis, chemo within 30 days, or radiotherapy within 90 days. Has not lost 10% of body wt in 6 months. No history of oncological symptoms or problems. Psych: +anxiety- stable without medication Musculoskeletal: +RA Skin: Negative for lesions, rash and itching. PHYSICAL EXAM: VITAL SIGNS: Ht 5' 2 (1.58m) Wt 132 lb (59.9kg) LMP 03/29/2022 BMI 24.14 kg/(m^2). GENERAL: alert and appropriate, in no distress, well-hydrated, well nourished, and happy, smiling, interactive SKIN: no rash noted HEAD: normocephalic, no abnormality or lesion noted EYES: no injection and visual acuity is grossly normal EARS: hearing grossly normal NOSE: external nose normal without rhinorrhea OROPHARYNX: moist mucus membranes NECK: full ROM, no cervical LNs noted RESPIRATORY: breathing non-labored CHEST: equal chest rise with normal respiratory effort HEART: RRR, confirmed with radial pulse exam ABDOMEN: soft and non-tender BACK: back normal in appearance, spine with FROM NEUROLOGIC: no obvious deficit Diagnostic tests reviewed for today's visit: Lab Value Units Date High Low HB 13.0 g/dL 03/12/2022 15.5 11.5 HCT 38.9 % 03/12/2022 46.0 36.0 WBC 5.07 k/uL 03/12/2022 11.00 3.70 PLT 379 k/uL 03/12/2022 400 150 NA 139 mmol/L 03/12/2022 144 136 K 4.0 mmol/L 03/12/2022 5.1 3.7 GLUC 88 mg/dL 03/12/2022 99 74 BUN 12 mg/dL 03/12/2022 21 7 CREAT 0.76 mg/dL 03/12/2022 0.96 0.58 PTSEC No results within date range. INR No results within date range. APTT No results within date range. ALT 9 U/L 03/12/2022 38 7 AST 17 U/L 03/12/2022 35 13 TBILI 0.3 mg/dL 03/12/2022 1.3 0.2 TSH 3.360 mIU/L 11/22/2021 4.200 0.270 Lab Value Units Date High Low HCGQT No results within date range. UHCG No results within date range. HCG, BODY* No results within date range. Lab Value Units Date High Low ABORHD No results within date range. ABSCREEN No results within date range. No results found for: HBA1C Most recent labs Assessment/Plan Seropositive rheumatoid arthritis (HCC) Assessment: follows with Rheumatology, infusion every 8 weeks METS: Participate in moderate recreational activities, such as golf, bowling, dancing, doubles tennis, or throwing a baseball or football (6.00 METs) Run a short distance (8.00 METs) Patient denies any chest pain or undue shortness of breath with the above physical activity. ASA Class: 2 ANESTHESIA FINDINGS: Intubation History: No history of difficult intubation Significant Anesthesia Considerations: None Airway Exam: General: Normal appearance Mallampati Score is CLASS II ULBT: Class I - Lower incisors can bite the upper lip above the marci line Neck: Normal appearance and function, Distance from hyoid to mentum during neck extension is at least 3 finger breaths Mouth: Normal tongue size and Mouth opening greater than 2 finger breaths Dentition: Intact Airway History: No abnormal airway history STOP BANG Score: Criteria: None Score = 0 PLAN This patient is optimally prepared for surgery. CONSULTS: Patient does not require consults for optimization at this time. The Following Tests/Procedures Have Been Initiated: Labs not indicated per PACC protocol, EKG not indicated per PACC protocol Planned Anesthetic: Per anesthesia choice Instructions Given to Patient: Patient given verbal instructions and voices comprehension and compliance. Copy sent electronically via My Chart, email, or mobile device. I spent more than 20 minutes cnop-wo-exos with the patient and over half the time was devoted to counseling and/or coordination of care. SIGNATURE: Sasha Rey PA-C PATIENT NAME: Rosa Mares DATE: 04/13/2022 TIME: 10:46 AM PAGER/CONTACT #: documented in this encounter [facility] 04-12-2022 Miscellaneous Notes Patient sent [employer] message to Dr. Hammond today, 04/12/2022 addressing same concerns. Call to patient. Left message to call office back Call to patient. Left message to call office back Call to patient. Left message to call office back From [facility] 03/05/2022 RUQ abdominal pain # Nausea - Symptoms most consistent with gastritis, and have improved with eating building cleaner and intermittent fasting. She has also started famotidine. Additional considerations include duodenitis, PUD. Slightly elevated amylase, could consider chronic pancreatitis, however lipase was WNL which is more reliable test. Had negative H pylori Ab. - If no improvement, could consider EGD followed by CTAP if EGD unremarkable. Pt calling to let Know the pepcid is working some but she still experiencing right upper quadrant pain a burning feeling also pain moves to back and sometimes moves to left quadrant Please call pt on how proceed Pt#[phone] documented in this encounter [facility] 03-15-2022 Note HNO ID: [id number] Author: Anahi Baig MD Service: ? Author Type: Physician Type: Progress Notes Filed: 03/15/2022 1:34 PM Note Text: [facility] 03/15/2022 CHIEF COMPLAINT: RUQ abdominal pain HISTORY OF PRESENT ILLNESS: Rosa Mares is a 26 year old female with a history of POTS (diagnosed in 2019), RA presenting to GI clinic for management of RUQ abdominal pain. Patient was referred by her PCP for abdominal pain. Pain started December 2021. Pain is located RUQ / epigastric / Right back. Timing of the pain is intermittent, becoming more frequent and severe in time, increasing to an 8/10 recently. Can be associated with eating or drinking. Intermittent fasting and improved diet helped symptoms over the last 2 days. Associated symptoms include nausea without vomiting. Having daily regular bowel movements. Patient is not having BRBPR. Patient is not having melena. Patient is not having weight loss. Started Pepcid yesterday. Didn't tolerate omeprazole due to GI discomfort. On Simponi for RA, has been on since 2020. Diet hx: Was eating more processed food / frozen pie in December. Travel hx: No EtOH: no Tobacco: No H/o abdominal surgeries: None Cardiac hx: POTS Imaging: RUQUS from 03/12/2022 was normal. Labs: amylase 138, normal lipase, normal electrolytes, normal liver function, normal renal function. CBC was WNL. Prior EGD / colonoscopy: None Fhx: No fhx for GI malignancy. PAST MEDICAL HISTORY: PAST MEDICAL HISTORY Diagnosis Date Arthritis Asthma Resolved - outgrew Dysthymic disorder Resolved Family history of diabetes mellitus (DM) 09/16/2012 Family history of hypertension 09/16/2012 POTS (postural orthostatic tachycardia syndrome) PTSD (post-traumatic stress disorder) ACTIVE PROBLEM LIST Depression Seropositive Rheumatoid Arthritis (Hcc) Pots (Postural Orthostatic Tachycardia Syndrome) Kenny (Generalized Anxiety Disorder) Thyroid Nodule PAST SURGICAL HISTORY: No past surgical history on file. ALLERGIES: ALLERGIES Allergen Reactions Pecan Nut GI Upset Nausea. Remicade [Inflixima* Shortness of Breath Chest pain. Sulfa (Sulfonamide * Rash Sulfasalazine Rash Xyzal [Levocetirizi* Rash FAMILY HISTORY: FAMILY HISTORY Problem Relation Age of Onset other (gestational diabetes) Mother Hypertension Father Other Sleep Disorder Sister mental health other (other) Brother mental health Other Sleep Disorder Brother mental health Diabetes Maternal Grandmother Hypertension Maternal Grandmother Hypertension Maternal Grandfather Prostate Cancer Maternal Grandfather Hypertension Paternal Grandmother Hypertension Paternal Grandfather Emphysema Paternal Grandfather SOCIAL HISTORY: Social History Tobacco Use Smoking status: Never Smokeless tobacco: Never Vaping Use Vaping Use: Never used Substance Use Topics Alcohol use: No Drug use: No CURRENT MEDICATIONS (reviewed w/ pt): Current Outpatient Medications Medication Sig famotidine (PEPCID) 20 mg tablet Take 1 tablet by mouth twice daily. golimumab (SIMPONI ARIA INTRAVENOUS) Inject intravenously. IV treatment every 8 weeks. No current facility-administered medications for this visit. Review of Systems Constitutional: Negative. Respiratory: Negative. Cardiovascular: Negative. All other systems reviewed and are negative. PHYSICAL EXAM: Vital signs: BP 118/79 (BP Site: Right Arm, BP Position: Sitting, BP Cuff Size: Regular Adult) Pulse 93 Ht 96.5 cm (3' 2 ) Wt 63.2 kg (139 lb 6.4 oz) LMP 02/25/2013 BMI 67.87 kg/m? Physical Exam Constitutional: Appearance: Normal appearance. HENT: Head: Normocephalic and atraumatic. Eyes: General: No scleral icterus. Conjunctiva/sclera: Conjunctivae normal. Cardiovascular: Rate and Rhythm: Normal rate. Pulmonary: Effort: Pulmonary effort is normal. No respiratory distress. Abdominal: General: There is no distension. Palpations: Abdomen is soft. Tenderness: There is no abdominal tenderness. Skin: Coloration: Skin is not jaundiced or pale. Neurological: Mental Status: She is alert and oriented to person, place, and time. Psychiatric: Mood and Affect: Mood normal. Behavior: Behavior normal. LAB DATA (discussed results w/ pt): Appointment on 03/12/2022 Component Date Value Ref Range Status Protein, Total 03/12/2022 7.3 6.3 - 8.0 g/dL Final Albumin 03/12/2022 4.2 3.9 - 4.9 g/dL Final Calcium, Total 03/12/2022 9.4 8.5 - 10.2 mg/dL Final Bilirubin, Total 03/12/2022 0.3 0.2 - 1.3 mg/dL Final Alkaline Phosphatase 03/12/2022 71 34 - 123 U/L Final AST 03/12/2022 17 13 - 35 U/L Final ALT 03/12/2022 9 7 - 38 U/L Final Glucose 03/12/2022 88 74 - 99 mg/dL Final The [place] [employer] (ADA) provides guidance for cutoff values for fasting glucose and random glucose. The ADA defines fasting as no caloric intake for at le (more content not included)... [facility] 03-15-2022 History of Presen t illness Narrative [facility] 03/15/2022 CHIEF COMPLAINT: RUQ abdominal pain HISTORY OF PRESENT ILLNESS: Rosa Mares is a 26 year old female with a history of POTS (diagnosed in 2019), RA presenting to GI clinic for management of RUQ abdominal pain. Patient was referred by her PCP for abdominal pain. Pain started December 2021. Pain is located RUQ / epigastric / Right back. Timing of the pain is intermittent, becoming more frequent and severe in time, increasing to an 8/10 recently. Can be associated with eating or drinking. Intermittent fasting and improved diet helped symptoms over the last 2 days. Associated symptoms include nausea without vomiting. Having daily regular bowel movements. Patient is not having BRBPR. Patient is not having melena. Patient is not having weight loss. Started Pepcid yesterday. Didn't tolerate omeprazole due to GI discomfort. On Simponi for RA, has been on since 2020. Diet hx: Was eating more processed food / frozen pie in December. Travel hx: No EtOH: no Tobacco: No H/o abdominal surgeries: None Cardiac hx: POTS Imaging: RUQUS from 03/12/2022 was normal. Labs: amylase 138, normal lipase, normal electrolytes, normal liver function, normal renal function. CBC was WNL. Prior EGD / colonoscopy: None Fhx: No fhx for GI malignancy. PAST MEDICAL HISTORY: PAST MEDICAL HISTORY Diagnosis Date Arthritis Asthma Resolved - outgrew Dysthymic disorder Resolved Family history of diabetes mellitus (DM) 09/16/2012 Family history of hypertension 09/16/2012 POTS (postural orthostatic tachycardia syndrome) PTSD (post-traumatic stress disorder) ACTIVE PROBLEM LIST Depression Seropositive Rheumatoid Arthritis (Hcc) Pots (Postural Orthostatic Tachycardia Syndrome) Kenny (Generalized Anxiety Disorder) Thyroid Nodule PAST SURGICAL HISTORY: No past surgical history on file. ALLERGIES: ALLERGIES Allergen Reactions Pecan Nut GI Upset Nausea. Remicade [Inflixima* Shortness of Breath Chest pain. Sulfa (Sulfonamide * Rash Sulfasalazine Rash Xyzal [Levocetirizi* Rash FAMILY HISTORY: FAMILY HISTORY Problem Relation Age of Onset other (gestational diabetes) Mother Hypertension Father Other Sleep Disorder Sister mental health other (other) Brother mental health Other Sleep Disorder Brother mental health Diabetes Maternal Grandmother Hypertension Maternal Grandmother Hypertension Maternal Grandfather Prostate Cancer Maternal Grandfather Hypertension Paternal Grandmother Hypertension Paternal Grandfather Emphysema Paternal Grandfather SOCIAL HISTORY: Social History Tobacco Use Smoking status: Never Smokeless tobacco: Never Vaping Use Vaping Use: Never used Substance Use Topics Alcohol use: No Drug use: No CURRENT MEDICATIONS (reviewed w/ pt): Current Outpatient Medications Medication Sig famotidine (PEPCID) 20 mg tablet Take 1 tablet by mouth twice daily. golimumab (SIMPONI ARIA INTRAVENOUS) Inject intravenously. IV treatment every 8 weeks. No current facility-administered medications for this visit. Review of Systems Constitutional: Negative. Respiratory: Negative. Cardiovascular: Negative. All other systems reviewed and are negative. PHYSICAL EXAM: Vital signs: BP 118/79 (BP Site: Right Arm, BP Position: Sitting, BP Cuff Size: Regular Adult) Pulse 93 Ht 96.5 cm (3' 2 ) Wt 63.2 kg (139 lb 6.4 oz) LMP 02/25/2013 BMI 67.87 kg/m Physical Exam Constitutional: Appearance: Normal appearance. HENT: Head: Normocephalic and atraumatic. Eyes: General: No scleral icterus. Conjunctiva/sclera: Conjunctivae normal. Cardiovascular: Rate and Rhythm: Normal rate. Pulmonary: Effort: Pulmonary effort is normal. No respiratory distress. Abdominal: General: There is no distension. Palpations: Abdomen is soft. Tenderness: There is no abdominal tenderness. Skin: Coloration: Skin is not jaundiced or pale. Neurological: Mental Status: She is alert and oriented to person, place, and time. Psychiatric: Mood and Affect: Mood normal. Behavior: Behavior normal. LAB DATA (discussed results w/ pt): Appointment on 03/12/2022 Component Date Value Ref Range Status Protein, Total 03/12/2022 7.3 6.3 - 8.0 g/dL Final Albumin 03/12/2022 4.2 3.9 - 4.9 g/dL Final Calcium, Total 03/12/2022 9.4 8.5 - 10.2 mg/dL Final Bilirubin, Total 03/12/2022 0.3 0.2 - 1.3 mg/dL Final Alkaline Phosphatase 03/12/2022 71 34 - 123 U/L Final AST 03/12/2022 17 13 - 35 U/L Final ALT 03/12/2022 9 7 - 38 U/L Final Glucose 03/12/2022 88 74 - 99 mg/dL Final The [place] Diabetes Association (ADA) provides guidance for cutoff values for fasting glucose and random glucose. The ADA defines fasting as no caloric intake for at least 8 hours. Fasting plasma glucose results between 100 to 125 mg/dL indicate increased risk for diabetes (prediabetes). Fasting plasma glucose results greater than or equal to 126 mg/dL meet the criteria for diagnosis of diabetes. In the absence of unequivocal hyperglycemia, results should be confirmed by repeat testing. In a patient with classic symptoms of hyperglycemia or hyperglycemic crisis, random plasma glucose results greater than or equal to 200 mg/dL meet the criteria for diagnosis of diabetes. Reference: Standards of Medical Care in Diabetes 2016, [place] [employer]. Diabetes Care. 2016.39(Suppl 1). BUN 03/12/2022 12 7 - 21 mg/dL Final Creatinine 03/12/2022 0.76 0.58 - 0.96 mg/dL Final Sodium 03/12/2022 139 136 - 144 mmol/L Final Potassium 03/12/2022 4.0 3.7 - 5.1 mmol/L Final Chloride 03/12/2022 100 97 - 105 mmol/L Final CO2 03/12/2022 28 22 - 30 mmol/L Final Anion Gap 03/12/2022 11 9 - 18 mmol/L Final Estimated Glomerular Filtration Ra* 03/12/2022 110 >=60 mL/min/1.73m Final Estimated Glomerular Filtration Rate (eGFR) is calculated using the 2020 CKD-EPI creatinine equation. This equation utilizes serum creatinine, sex, and age as parameters. The creatinine assay has traceable calibration to isotope dilution-mass spectrometry. Refer to KDIGO guidelines for clinical interpretation. In patients with unstable renal function, e.g. those with acute kidney injury, the eGFR may not accurately reflect actual GFR. WBC 03/12/2022 5.07 3.70 - 11.00 k/uL Final RBC 03/12/2022 4.51 3.90 - 5.20 m/uL Final Hemoglobin 03/12/2022 13.0 11.5 - 15.5 g/dL Final Hematocrit 03/12/2022 38.9 36.0 - 46.0 % Final MCV 03/12/2022 86.3 80.0 - 100.0 fL Final MCH 03/12/2022 28.8 26.0 - 34.0 pg Final MCHC 03/12/2022 33.4 30.5 - 36.0 g/dL Final RDW-CV 03/12/2022 13.2 11.5 - 15.0 % Final Platelet Count 03/12/2022 379 150 - 400 k/uL Final MPV 03/12/2022 11.7 9.0 - 12.7 fL Final Neut% 03/12/2022 34.1 % Final Abs Neut 03/12/2022 1.73 1.45 - 7.50 k/uL Final Lymph% 03/12/2022 50.3 % Final Abs Lymph 03/12/2022 2.55 1.00 - 4.00 k/uL Final Pitkin% 03/12/2022 9.1 % Final Abs Pitkin 03/12/2022 0.46 <0.87 k/uL Final Eosin% 03/12/2022 4.9 % Final Abs Eosin 03/12/2022 0.25 <0.46 k/uL Final Baso% 03/12/2022 1.6 % Final Abs Baso 03/12/2022 0.08 <0.11 k/uL Final Immature Gran % 03/12/2022 0.0 % Final Abs Immature Gran 03/12/2022 <0.03 <0.10 k/uL Final NRBC 03/12/2022 0.0 /100 WBC Final Absolute nRBC 03/12/2022 <0.01 <0.01 k/uL Final Diff Type 03/12/2022 Auto Final H. pylori IgG, Qualitative 03/12/2022 Negative Negative Final Cannot exclude H. pylori infection if the specimen collected 3-4 weeks after onset of symptoms. Amylase 03/12/2022 138 (A) 30 - 104 U/L Final Lipase 03/12/2022 21 16 - 61 U/L Final IMAGING/PROCEDURES Reviewed in MyChart IMPRESSION/PLAN (discussed w/ pt): Rosa Mares is a 26 year old female with a history of POTS (diagnosed in 2019), RA presenting to GI clinic for management of RUQ abdominal pain. # RUQ abdominal pain # Nausea - Symptoms most consistent with gastritis, and have improved with eating building cleaner and intermittent fasting. She has also started famotidine. Additional considerations include duodenitis, PUD. Slightly elevated amylase, could consider chronic pancreatitis, however lipase was WNL which is more reliable test. Had negative H pylori Ab. - If no improvement, could consider EGD followed by CTAP if EGD unremarkable. FOLLOW-UP APPTS: No future appointments. - RTC in 3-4 months Anahi Baig MD 03/15/2022 1:08 PM documented in this encounter [facility] 03-12-2022 Note HNO ID: [id number] Author: Chetna Healy APRN.AGRISCIENCE TECHNOLOGY INSTRUCTOR Service: ? Author Type: Nurse Practitioner Type: Progress Notes Filed: 03/12/2022 2:09 PM Note Text: CC Patient presents with: Abdominal Pain COLBY Mares is a 26 year old female who presents with abdominal pain for about one month. Location: RUQ with radiation to R back and epigastric area Described as: dull burning pain that is intermittent Aggravating/triggering factors: eating Alleviating factors: none, resolves without treatment Associated symptoms: nausea, constipation or diarrhea once a month depending on dietary factors Denies: blood in stools or black stools, reflux, vomiting, problem swallowing, bloating, excessive belching. GI history: constipation in childhood. Surgeries: None. Endoscopy: None Family history: cholecystectomy She was seen in October for globus sensation, concerned about thyroid. Ultrasound of the thyroid was normal, sensation resolved with Pepcid x 1 month and has not returned. REVIEW OF SYSTEMS General: no fevers, no chills, no night sweats, no change in energy, and no significant changes in weight Respiratory: no cough, no wheezing, no shortness of breath Cardiovascular: no chest pain, no chest pressure, and no palpitations : no dysuria, urgency, frequency, hesitancy, hematuria, history of kidney stones PAST MEDICAL HISTORY Diagnosis Date Arthritis Asthma Resolved - outgrew Dysthymic disorder Resolved Family history of diabetes mellitus (DM) 09/16/2012 Family history of hypertension 09/16/2012 POTS (postural orthostatic tachycardia syndrome) PTSD (post-traumatic stress disorder) History reviewed. No pertinent surgical history. ALLERGIES Pecan Nut, Remicade [Infliximab], Sulfa (Sulfonamide Antibiotics), Sulfasalazine, and Xyzal [Levocetirizine] MEDICATIONS golimumab (SIMPONI ARIA INTRAVENOUS) Inject intravenously. IV treatment every 8 weeks. FAMILY HISTORY Problem Relation Age of Onset other (gestational diabetes) Mother Hypertension Father Other Sleep Disorder Sister mental health other (other) Brother mental health Other Sleep Disorder Brother mental health Diabetes Maternal Grandmother Hypertension Maternal Grandmother Hypertension Maternal Grandfather Prostate Cancer Maternal Grandfather Hypertension Paternal Grandmother Hypertension Paternal Grandfather Emphysema Paternal Grandfather Social History Tobacco Use Smoking status: Never Smokeless tobacco: Never Vaping Use Vaping Use: Never used Substance Use Topics Alcohol use: No Drug use: No PHYSICAL EXAM BP 124/91 Pulse 86 Resp 12 Wt 64 kg (141 lb) LMP 08/27/2012 BMI 25.79 kg/m? General Appearance: well appearing, in no acute distress, alert Lungs: Lungs clear to auscultation. No wheezing, rhonchi, rales. Heart: RRR without murmur, gallop, or rubs. No ectopy Abdomen: Soft, non-distended. mild epigastric abdominal tenderness with palpation. No guarding or rebound tenderness. Negative Heart's sign. Bowel sounds normal and active. No masses, organomegaly. CVA tenderness absent DATA REVIEWED: Most recent labs ASSESSMENT/PLAN: 1. Upper abdominal pain - ICD9: 789.09, ICD10: R10.10 (primary diagnosis) Differential Diagnosis includes GERD, PUD, H. Pylori and Gall bladder colic/cholelithiasis No alarm symptoms or exam findings. Evaluate further with: - COMP METABOLIC PANEL - CBC + DIFF - H PYLORI IGG AB - AMYLASE BLD - LIPASE BLD - US ABD RT UPPER QUADRANT Start Pepcid BID, patient was not able to tolerate PPI previously 2. Nausea - ICD9: 787.02, ICD10: R11.0 As above - COMP METABOLIC PANEL - CBC + DIFF - H PYLORI IGG AB - AMYLASE BLD - LIPASE BLD - US ABD RT UPPER QUADRANT Prescription instructions reviewed with patient as applicable. Potential red flag symptoms discussed with the patient. Reviewed appropriate action plan to take if red flag symptoms occur. Patient agreeable to treatment plan. Chetna Healy APRN.AGRISCIENCE TECHNOLOGY INSTRUCTOR [facility] 03-12-2022 History of Presen t illness Narrative CC Patient presents with: Abdominal Pain HPI Rosa Mares is a 26 year old female who presents with abdominal pain for about one month. Location: RUQ with radiation to R back and epigastric area Described as: dull burning pain that is intermittent Aggravating/triggering factors: eating Alleviating factors: none, resolves without treatment Associated symptoms: nausea, constipation or diarrhea once a month depending on dietary factors Denies: blood in stools or black stools, reflux, vomiting, problem swallowing, bloating, excessive belching. GI history: constipation in childhood. Surgeries: None. Endoscopy: None Family history: cholecystectomy She was seen in October for globus sensation, concerned about thyroid. Ultrasound of the thyroid was normal, sensation resolved with Pepcid x 1 month and has not returned. REVIEW OF SYSTEMS General: no fevers, no chills, no night sweats, no change in energy, and no significant changes in weight Respiratory: no cough, no wheezing, no shortness of breath Cardiovascular: no chest pain, no chest pressure, and no palpitations : no dysuria, urgency, frequency, hesitancy, hematuria, history of kidney stones PAST MEDICAL HISTORY Diagnosis Date Arthritis Asthma Resolved - outgrew Dysthymic disorder Resolved Family history of diabetes mellitus (DM) 09/16/2012 Family history of hypertension 09/16/2012 POTS (postural orthostatic tachycardia syndrome) PTSD (post-traumatic stress disorder) History reviewed. No pertinent surgical history. ALLERGIES Pecan Nut, Remicade [Infliximab], Sulfa (Sulfonamide Antibiotics), Sulfasalazine, and Xyzal [Levocetirizine] MEDICATIONS golimumab (SIMPONI ARIA INTRAVENOUS) Inject intravenously. IV treatment every 8 weeks. FAMILY HISTORY Problem Relation Age of Onset other (gestational diabetes) Mother Hypertension Father Other Sleep Disorder Sister mental health other (other) Brother mental health Other Sleep Disorder Brother mental health Diabetes Maternal Grandmother Hypertension Maternal Grandmother Hypertension Maternal Grandfather Prostate Cancer Maternal Grandfather Hypertension Paternal Grandmother Hypertension Paternal Grandfather Emphysema Paternal Grandfather Social History Tobacco Use Smoking status: Never Smokeless tobacco: Never Vaping Use Vaping Use: Never used Substance Use Topics Alcohol use: No Drug use: No PHYSICAL EXAM BP 124/91 Pulse 86 Resp 12 Wt 64 kg (141 lb) LMP 08/27/2012 BMI 25.79 kg/m General Appearance: well appearing, in no acute distress, alert Lungs: Lungs clear to auscultation. No wheezing, rhonchi, rales. Heart: RRR without murmur, gallop, or rubs. No ectopy Abdomen: Soft, non-distended. mild epigastric abdominal tenderness with palpation. No guarding or rebound tenderness. Negative Heart's sign. Bowel sounds normal and active. No masses, organomegaly. CVA tenderness absent DATA REVIEWED: Most recent labs ASSESSMENT/PLAN: 1. Upper abdominal pain - ICD9: 789.09, ICD10: R10.10 (primary diagnosis) Differential Diagnosis includes GERD, PUD, H. Pylori and Gall bladder colic/cholelithiasis No alarm symptoms or exam findings. Evaluate further with: - COMP METABOLIC PANEL - CBC + DIFF - H PYLORI IGG AB - AMYLASE BLD - LIPASE BLD - US ABD RT UPPER QUADRANT Start Pepcid BID, patient was not able to tolerate PPI previously 2. Nausea - ICD9: 787.02, ICD10: R11.0 As above - COMP METABOLIC PANEL - CBC + DIFF - H PYLORI IGG AB - AMYLASE BLD - LIPASE BLD - US ABD RT UPPER QUADRANT Prescription instructions reviewed with patient as applicable. Potential red flag symptoms discussed with the patient. Reviewed appropriate action plan to take if red flag symptoms occur. Patient agreeable to treatment plan. Chetna Healy APRN.CNP documented in this encounter [facility] 03-12-2022 Miscellaneous Notes Patient call in for abdominal pain right upper quadrant since middle January. Patient has noticed that for the last couple of weeks it has been more frequent. Patient states it is worse after eating. Patient states that bowel movement have been normal. Nurse Triage assessment completed with protocol recommending for disposition of See PCP in 24 hours. Care advice reviewed with patient, patient stated understanding. Patient scheduled appointment with Chetna this afternoon. Reason for Disposition [1] MODERATE pain (e.g., interferes with normal activities) AND [2] pain comes and goes (cramps) AND [3] present > 24 hours (Exception: pain with Vomiting or Diarrhea - see that Guideline) Answer Assessment - Initial Assessment Questions 1. LOCATION: Right Upper quadrant; Dull burning pain on side toward the back, sometimes moves to front center. 2. RADIATION: Denies Radiation 3. ONSET: Began middle of January; notices it after eating 4. SUDDEN: Gradual, it would happen then fade to where she thought it was no longer there then it would come back 5. PATTERN ) Comes and Goes, A lot of times after eating, but not always 6. SEVERITY: Rates pain between 4 and a 6; Has not taken any pain meds for it. 7. RECURRENT SYMPTOM: Denies 8. CAUSE: Unsure 9. RELIEVING/AGGRAVATING FACTORS: Nothing makes it better or worse, it is just there. 10. OTHER SYMPTOMS: Denies other symptoms Protocols used: Abdominal Pain - [id number] documented in this encounter [facility] 03-07-2022 Note HNO ID: [id number] Author: Melinda Milner RDH Service: ? Author Type: Dental Hygienist Type: Progress Notes Filed: 03/07/2022 2:30 PM Note Text: Summary: Prophy DENTAL HYGIENE VISIT: Adult Prophylaxis 03/07/2022 Rosa Mares HISTORY OF PRESENT ILLNESS: Patient is a 26 [address] Dr[address] Gagnon, who presents today for Prophylaxis: Pain Status: No pain (0 out of 10).. Chief Complaint: Dental Hygiene Visit. Blood pressure 105/88, pulse 91, last menstrual period 08/27/2012.. PAST MEDICAL HISTORY: Reviewed Medical History: No change since last visit. INFORMED CONSENT: The procedure including risks, benefits, options and personnel performing the procedure was discussed with the patient. There are no contraindications to the procedure. Paualma Mares expressed understanding and agreed to proceed. OBJECTIVE: Oral hygiene poor with heavy plaque and calculus in both sub and supra.. ASSESSMENT/TREATMENT: Re-care appointment: Dental Prophylaxis with Melinda Milner Plaque: heavy. Calculus: moderate. Oral Hygiene Instructions: brushing technique, flossing, brush 2 times per day, power brush, and alcohol free rinses. PLAN: New decay/restorative needs none. Next DDS visit recare. Next Hygiene visit: 4BWX, Dental Prophylaxis , Periodic Oral Exam, and reassess tissues for improved hygiene and healing. Chronic plaque induced gingivitis however lacking criteria currently for SRP. Monitor and treat if condition worsens . Melinda Milner [facility] 01-09-2022 Note HNO ID: [id number] Author: Ralf Gamboa DMD Service: ? Author Type: Dentist Type: Progress Notes Filed: 01/09/2022 2:26 PM Note Text: I have seen and evaluated the patient and discussed the case with the resident physician. I agree with the assessment and plan as documented in the resident?s note. Ralf Gamboa DMD [facility] 01-09-2022 Note HNO ID: [id number] Author: Lisa Gagnon DMD Service: ? Author Type: Resident Type: Progress Notes Filed: 01/09/2022 9:32 AM Note Text: Dental Comprehensive Examination Dr. Lisa Gagnon DMD examined the patient at this appointment. 01/09/2022 Rosa Mares [id number] HISTORY OF PRESENT ILLNESS: 26 year old female patient presents for initial exam and continuing dental treatment. ACTIVE PROBLEM LIST Depression Seropositive Rheumatoid Arthritis (Hcc) Pots (Postural Orthostatic Tachycardia Syndrome) Kenny (Generalized Anxiety Disorder) Thyroid Nodule Current Outpatient Medications on File Prior to Visit Medication Sig golimumab (SIMPONI ARIA INTRAVENOUS) Inject intravenously. IV treatment every 8 weeks. famotidine (PEPCID) 20 mg tablet Take 1 tablet by mouth twice daily. (Patient not taking: Reported on 01/09/2022) No current facility-administered medications on file prior to visit. ALLERGIES Allergen Reactions Pecan Nut GI Upset Nausea. Remicade [Inflixima* Shortness of Breath Chest pain. Sulfa (Sulfonamide * Rash Sulfasalazine Rash Xyzal [Levocetirizi* Rash Pain status: No 0 on a scale of 0 to 10 Clinical Examination: Extraoral Findings: Swelling: No Lymphadenopathy: No Asymmetry: No TMJ: No Intraoral Soft Tissues: Tongue: WNL Buccal mucosa: WNL Pharynx: WNL Palate: WNL Floor of mouth: WNL Dentition: Caries or defective mandaeism: None Pain to percussion: None Mobility: None Occlusion class: Right side: 1 Left side: 1 Crossbite: No Overbite: 10 % Overjet: 2 mm Midline: ON Periodontal Status: Oral hygiene: fair Attachment loss: 3 - 5 mm Pockets: Generalized 3-5 mm---deeper in posterior due to delayed passive eruption not periodontal disease Radiographic evaluation: Panoramic Yes, Bitewings Yes, Pa # 6, 8, 11, 22, 24, and 27 Findings: No apical radiolucencies ASSESSMENT: Oral Cancer Screening: Negative Caries charted on odontogram; Caries Risk: Low Periodontal Dx: Generalized gingivitis Radiographic Interpretation: No decay noted radiographically. No pathology noted. Clinical Exam: No decay or pathology noted clinically PLAN: Patient presents for initial exam with full compliment of maxillary and mandibular dentition. Patient states that she has not seen a dentist since 2019 and wanted a new dental home. No carious lesions are noted radiographically or clinically. Periodontal exam done. Patient informed of deep probing on 2nd molars due to delayed passive eruption. Patient given oral hygiene instructions with opportunity to ask questions. I have discussed the risks, benefits, complications, and alternatives of proceeding with treatment at this time. I have also discussed other options with Rosa Mares. She understands the above issues and is agreeable to proceeding as planned. Next DDS visit: None Next Hygiene visit: Dental Prophylaxis Assisted by: Chayo Alarcon Supervised by: Dr. Bee Gagnon DMD [facility] 01-09-2022 History of Presen t illness Narrative Dental Comprehensive Examination Dr. Lisa Gagnon DMD examined the patient at this appointment. 01/09/2022 Rosa Mares [id number] HISTORY OF PRESENT ILLNESS: 26 year old female patient presents for initial exam and continuing dental treatment. ACTIVE PROBLEM LIST Depression Seropositive Rheumatoid Arthritis (Hcc) Pots (Postural Orthostatic Tachycardia Syndrome) Kenny (Generalized Anxiety Disorder) Thyroid Nodule Current Outpatient Medications on File Prior to Visit Medication Sig golimumab (SIMPONI ARIA INTRAVENOUS) Inject intravenously. IV treatment every 8 weeks. famotidine (PEPCID) 20 mg tablet Take 1 tablet by mouth twice daily. (Patient not taking: Reported on 01/09/2022) No current facility-administered medications on file prior to visit. ALLERGIES Allergen Reactions Pecan Nut GI Upset Nausea. Remicade [Inflixima* Shortness of Breath Chest pain. Sulfa (Sulfonamide * Rash Sulfasalazine Rash Xyzal [Levocetirizi* Rash Pain status: No 0 on a scale of 0 to 10 Clinical Examination: Extraoral Findings: Swelling: No Lymphadenopathy: No Asymmetry: No TMJ: No Intraoral Soft Tissues: Tongue: WNL Buccal mucosa: WNL Pharynx: WNL Palate: WNL Floor of mouth: WNL Dentition: Caries or defective mandaeism: None Pain to percussion: None Mobility: None Occlusion class: Right side: 1 Left side: 1 Crossbite: No Overbite: 10 % Overjet: 2 mm Midline: ON Periodontal Status: Oral hygiene: fair Attachment loss: 3 - 5 mm Pockets: Generalized 3-5 mm---deeper in posterior due to delayed passive eruption not periodontal disease Radiographic evaluation: Panoramic Yes, Bitewings Yes, Pa # 6, 8, 11, 22, 24, and 27 Findings: No apical radiolucencies ASSESSMENT: Oral Cancer Screening: Negative Caries charted on odontogram; Caries Risk: Low Periodontal Dx: Generalized gingivitis Radiographic Interpretation: No decay noted radiographically. No pathology noted. Clinical Exam: No decay or pathology noted clinically PLAN: Patient presents for initial exam with full compliment of maxillary and mandibular dentition. Patient states that she has not seen a dentist since 2019 and wanted a new dental home. No carious lesions are noted radiographically or clinically. Periodontal exam done. Patient informed of deep probing on 2nd molars due to delayed passive eruption. Patient given oral hygiene instructions with opportunity to ask questions. I have discussed the risks, benefits, complications, and alternatives of proceeding with treatment at this time. I have also discussed other options with Rosa Kitchenshyla. She understands the above issues and is agreeable to proceeding as planned. Next DDS visit: None Next Hygiene visit: Dental Prophylaxis Assisted by: Chayo Alarcon Supervised by: Dr. Bee Gagnon DMD documented in this encounter [facility] 12-22-2021 Note HNO ID: [id number] Author: Maksim Bella DO Service: ? Author Type: Physician Type: Progress Notes Filed: 12/22/2021 8:25 AM Note Text: UNIVERSAL PROTOCOL / SAFETY CHECKLIST Procedure to be Performed: EMG Sign In: A Moment of CARE was completed. Personnel directly involved with the procedure wore the appropriate PPE (Personal Protective Equipment). Patient/Surrogate Stated/Verified: PATIENT VERIFIED(optional for EMERGENT procedures): Patient name, Date of , Relevant allergies, and The intended procedure Time Out Communication: Intended patient and procedure match the source documents. Correct side/site marked and visible. Sign Out: SIGN OUT (optional for EMERGENT procedures): Post-procedure follow-up management communicated and Plan of Care Visit completed when applicable. DO Katiuska Gusman EMG Tech [facility] 12-22-2021 History of Presen t illness Narrative UNIVERSAL PROTOCOL / SAFETY CHECKLIST Procedure to be Performed: EMG Sign In: A Moment of CARE was completed. Personnel directly involved with the procedure wore the appropriate PPE (Personal Protective Equipment). Patient/Surrogate Stated/Verified: PATIENT VERIFIED(optional for EMERGENT procedures): Patient name, Date of , Relevant allergies, and The intended procedure Time Out Communication: Intended patient and procedure match the source documents. Correct side/site marked and visible. Sign Out: SIGN OUT (optional for EMERGENT procedures): Post-procedure follow-up management communicated and Plan of Care Visit completed when applicable. DO Katiuska Gusman EMG Tech documented in this encounter [facility] 10-26-2022 Note HNO ID: [id number] Author: Chetna Healy APRN.CNP Service: ? Author Type: Nurse Practitioner Type: Progress Notes Filed: 12/20/2021 12:04 PM Note Text: CC: Patient presents with: hand and elbow pain and coldness HPI Rosa Mares is a 26 year old female who presents today for above. Patient reports for the past 3 months she has been experiencing pain and cold sensation of the right upper extremity. Mostly in the right elbow and right wrist. Now she is starting to have pain and tingling of the left wrist and hand but very mild. Associated with tingling of fingers of the right hand. 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 This helped initially but now symptoms are getting worse REVIEW OF SYSTEMS See HPI PAST MEDICAL HISTORY Diagnosis Date Asthma Resolved - outgrew Dysthymic disorder Resolved Family history of diabetes mellitus (DM) 09/16/2012 Family history of hypertension 09/16/2012 POTS (postural orthostatic tachycardia syndrome) PTSD (post-traumatic stress disorder) PAST SURGICAL HISTORY Procedure Laterality Date SINUS SURGERY HX ALLERGIES Pecan Nut, Remicade [Infliximab], Sulfa (Sulfonamide Antibiotics), Sulfasalazine, and Xyzal [Levocetirizine] MEDICATIONS famotidine (PEPCID) 20 mg tablet Take 1 tablet by mouth twice daily. golimumab (SIMPONI ARIA INTRAVENOUS) Inject intravenously. IV treatment every 8 weeks. FAMILY HISTORY Problem Relation Age of Onset other (gestational diabetes) Mother Hypertension Father Other Sleep Disorder Sister mental health other (other) Brother mental health Other Sleep Disorder Brother mental health Diabetes Maternal Grandmother Hypertension Maternal Grandmother Hypertension Maternal Grandfather Prostate Cancer Maternal Grandfather Hypertension Paternal Grandmother Hypertension Paternal Grandfather Emphysema Paternal Grandfather Social History Tobacco Use Smoking status: Never Smokeless tobacco: Never Vaping Use Vaping Use: Never used Substance Use Topics Alcohol use: No Drug use: No PHYSICAL EXAM BP 108/78 Pulse 68 Resp 14 Wt 63 kg (139 lb) LMP 08/27/2012 BMI 25.42 kg/m? General Appearance: well appearing, in no acute distress, alert Upper Extremities: No deformities, edema, skin discoloration, clubbing or cyanosis. Good capillary refill. , Pulses: 2+. Muscle strength 5/5 bilaterally. Reflexes 2+ and symmetric Musculoskeletal: left wrist- tenderness with palpation of dorsal side of wrist. Full ROM with mild pain. Negative Phalen and Tinel. Right wrist- no tenderness, full and painless ROM Left elbow- tenderness with palpation of lateral and medial epicondyle. Full and painless ROM ASSESSMENT/PLAN: 1. Pain of right upper extremity - ICD9: 729.5, ICD10: M79.601 (primary diagnosis) Suspect nerve compression - evaluate further with EMG(NEURO/NI) - follow-up pending results - recommend cock-up splint, patient can get at pharmacy 2. Tingling of right upper extremity - ICD9: 782.0, ICD10: R20.2 As above - EMG(NEURO/NI) 3. Right wrist pain - ICD9: 719.43, ICD10: M25.531 As above - EMG(NEURO/NI) Prescription instructions reviewed with patient as applicable. Potential red flag symptoms discussed with the patient. Reviewed appropriate action plan to take if red flag symptoms occur. Patient agreeable to treatment plan. Chetna Healy APRN.[facility] [place] 12-20-2021 History of Presen t illness Narrative CC: Patient presents with: hand and elbow pain and coldness HPI Mendelkimberlyalma Mares is a 26 year old female who presents today for above. Patient reports for the past 3 months she has been experiencing pain and cold sensation of the right upper extremity. Mostly in the right elbow and right wrist. Now she is starting to have pain and tingling of the left wrist and hand but very mild. Associated with tingling of fingers of the right hand. 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 This helped initially but now symptoms are getting worse REVIEW OF SYSTEMS See HPI PAST MEDICAL HISTORY Diagnosis Date Asthma Resolved - outgrew Dysthymic disorder Resolved Family history of diabetes mellitus (DM) 09/16/2012 Family history of hypertension 09/16/2012 POTS (postural orthostatic tachycardia syndrome) PTSD (post-traumatic stress disorder) PAST SURGICAL HISTORY Procedure Laterality Date SINUS SURGERY HX ALLERGIES Pecan Nut, Remicade [Infliximab], Sulfa (Sulfonamide Antibiotics), Sulfasalazine, and Xyzal [Levocetirizine] MEDICATIONS famotidine (PEPCID) 20 mg tablet Take 1 tablet by mouth twice daily. golimumab (SIMPONI ARIA INTRAVENOUS) Inject intravenously. IV treatment every 8 weeks. FAMILY HISTORY Problem Relation Age of Onset other (gestational diabetes) Mother Hypertension Father Other Sleep Disorder Sister mental health other (other) Brother mental health Other Sleep Disorder Brother mental health Diabetes Maternal Grandmother Hypertension Maternal Grandmother Hypertension Maternal Grandfather Prostate Cancer Maternal Grandfather Hypertension Paternal Grandmother Hypertension Paternal Grandfather Emphysema Paternal Grandfather Social History Tobacco Use Smoking status: Never Smokeless tobacco: Never Vaping Use Vaping Use: Never used Substance Use Topics Alcohol use: No Drug use: No PHYSICAL EXAM BP 108/78 Pulse 68 Resp 14 Wt 63 kg (139 lb) LMP 08/27/2012 BMI 25.42 kg/m General Appearance: well appearing, in no acute distress, alert Upper Extremities: No deformities, edema, skin discoloration, clubbing or cyanosis. Good capillary refill. , Pulses: 2+. Muscle strength 5/5 bilaterally. Reflexes 2+ and symmetric Musculoskeletal: left wrist- tenderness with palpation of dorsal side of wrist. Full ROM with mild pain. Negative Phalen and Tinel. Right wrist- no tenderness, full and painless ROM Left elbow- tenderness with palpation of lateral and medial epicondyle. Full and painless ROM ASSESSMENT/PLAN: 1. Pain of right upper extremity - ICD9: 729.5, ICD10: M79.601 (primary diagnosis) Suspect nerve compression - evaluate further with EMG(NEURO/NI) - follow-up pending results - recommend cock-up splint, patient can get at pharmacy 2. Tingling of right upper extremity - ICD9: 782.0, ICD10: R20.2 As above - EMG(NEURO/NI) 3. Right wrist pain - ICD9: 719.43, ICD10: M25.531 As above - EMG(NEURO/NI) Prescription instructions reviewed with patient as applicable. Potential red flag symptoms discussed with the patient. Reviewed appropriate action plan to take if red flag symptoms occur. Patient agreeable to treatment plan. Chetna Healy APRN.CNP documented in this encounter [facility] 11-22-2021 Note HNO ID: [id number] Author: Chetna Healy APRN.CNP Service: ? Author Type: Nurse Practitioner Type: Progress Notes Filed: 11/22/2021 9:05 AM Note Text: CC: Patient presents with: lump in throat x 2 months HPI Rosa Mares is a 26 year old female who presents today for above. Patient reports globus sensation and pain with swallowing intermittently since she had COVID in February. Becoming more frequent over the past two months, now occurring at least 3 times a week. Lasts part of the day. Symptoms are precipitated with stress at times Alleviated with nothing. Denies dysphagia, sore/scratchy throat, hoarseness, voice changes, heartburn/reflux symptoms She has a history of seasonal allergies but no issues recently. Denies nasal congestion, runny nose, itchy/watery eyes, post nasal drainage Denies alcohol, tobacco, significant amounts of caffeine or NSAIDS REVIEW OF SYSTEMS General: no fevers, no chills, and no night sweats Respiratory: no cough, no wheezing, no hemoptysis Cardiovascular: no chest pain and no chest pressure GI: Negative for abdominal discomfort, nausea, vomiting Endocrine: no fatigue, no weight gain, no weight loss, no hair loss, no dry skin, no cold intolerance, and no heat intolerance PAST MEDICAL HISTORY Diagnosis Date Asthma Resolved - outgrew Dysthymic disorder Resolved Family history of diabetes mellitus (DM) 09/16/2012 Family history of hypertension 09/16/2012 POTS (postural orthostatic tachycardia syndrome) PTSD (post-traumatic stress disorder) PAST SURGICAL HISTORY Procedure Laterality Date SINUS SURGERY HX ALLERGIES Pecan Nut, Remicade [Infliximab], Sulfa (Sulfonamide Antibiotics), Sulfasalazine, and Xyzal [Levocetirizine] MEDICATIONS golimumab (SIMPONI ARIA INTRAVENOUS) Inject intravenously. IV treatment every 8 weeks. FAMILY HISTORY Problem Relation Age of Onset other (gestational diabetes) Mother Hypertension Father Other Sleep Disorder Sister mental health other (other) Brother mental health Other Sleep Disorder Brother mental health Diabetes Maternal Grandmother Hypertension Maternal Grandmother Hypertension Maternal Grandfather Prostate Cancer Maternal Grandfather Hypertension Paternal Grandmother Hypertension Paternal Grandfather Emphysema Paternal Grandfather Social History Tobacco Use Smoking status: Never Smokeless tobacco: Never Vaping Use Vaping Use: Never used Substance Use Topics Alcohol use: No Drug use: No PHYSICAL EXAM BP 108/76 Pulse 70 Temp 36.1 ?C (96.9 ?F) (Temporal) Resp 12 Wt 65.3 kg (144 lb) LMP 08/27/2012 SpO2 98% BMI 26.34 kg/m? General Appearance: well appearing, in no acute distress, alert Neck: Neck supple, No adenopathy, thyroid enlarged without palpable nodules Oropharynx: lips normal without lesions, tongue midline and normal, soft palate, uvula, and tonsils normal Lymph nodes: No supraclavicular lymphadenopathy Lungs: Lungs clear to auscultation. No wheezing, rhonchi, rales. Heart: RRR without murmur, gallop, or rubs. No ectopy ASSESSMENT/PLAN: 1. Globus sensation - ICD9: 306.4, ICD10: R09.89 (primary diagnosis) Differentials include GERD, allergic rhinitis. Thyroid feels enlarged on exam. - US THYROID/PARATHYROID - if ultrasound normal will trial treatment with PPI x 1 month 2. Enlarged thyroid - ICD9: 240.9, ICD10: E04.9 As above - US THYROID/PARATHYROID - TSH BLD - T4 FREE/FREE THYROX - T3 BLD Prescription instructions reviewed with patient as applicable. Potential red flag symptoms discussed with the patient. Reviewed appropriate action plan to take if red flag symptoms occur. Patient agreeable to treatment plan. Chetna Healy, HUMAN RESOURCES ADVISOR.AGRISCIENCE TECHNOLOGY INSTRUCTOR [facility] 07-12-2021 History of Presen t illness Narrative PERTINENT HISTORY FROM DR. CARMONA'S PROGRESS NOTE ON : Rheuma history: initial eval: 07/11/2020 24 year old female with PMH significant for Asthma, ADHD, Fibromyalgia, POTS, Dysthymic disorder seropositive rheumatoid arthritis +RF, CCP dx in 2018 with fatigue, synovitis involving mcp,wrists. Previously following in [facility] and since she recently re-located, she is looking to transfer her care. Previous tx SSZ (cytopenia) Humira (not effective) Tried Remicade with allergic reaction (chest pain, increased HR) Current tx: Simponi started Dec 2019- present Methotrexate end of 2017 with some improvement however persistent synovitis Last visit 07/11/2020 Interested in getting off of MTX to be able to get . There are no immediate plans for however does not want to be limited by her medication Taper MTX, start hcq Today: Doing well, on simponi tolerating well No pain stiffness or swelling No fevers chills chest pain dyspnea No rash no oral ulcers No oral dmards/nsaids Doing well PAST MEDICAL HISTORY Diagnosis Date Asthma Resolved - outgrew Dysthymic disorder Resolved Family history of diabetes mellitus (DM) 09/16/2012 Family history of hypertension 09/16/2012 POTS (postural orthostatic tachycardia syndrome) PTSD (post-traumatic stress disorder) PAST SURGICAL HISTORY Procedure Laterality Date SINUS SURGERY HX FAMILY HISTORY Problem Relation Age of Onset other (gestational diabetes) Mother Hypertension Father Other Sleep Disorder Sister mental health other (other) Brother mental health Other Sleep Disorder Brother mental health Diabetes Maternal Grandmother Hypertension Maternal Grandmother Hypertension Maternal Grandfather Prostate Cancer Maternal Grandfather Hypertension Paternal Grandmother Hypertension Paternal Grandfather Emphysema Paternal Grandfather Social History Tobacco Use Smoking status: Never Smoker Smokeless tobacco: Never Used Vaping Use Vaping Use: Never used Substance Use Topics Alcohol use: No Drug use: No INTERVAL HISTORY This Team Access Model visit is a virtual encounter. It required patient-provider interaction for the medical decision making as documented below. She is a former patient of Dr. Carmona. She is doing well. She denies any flares since the MARIJA. Last simponi was 07/11/2021, which she tolerated well. Sites of pain: none Joint swelling: none EMS: none No recent infections. Tolerating meds. Answers for HPI/ROS submitted by the patient on 07/12/2021 Fever : No Recent Unintentional Weight Change: No Eye Pain: No Eye Redness: No Vision Disturbance: No Eye Dryness: No Nose Bleeds: No Sores in your Mouth: No Trouble Swallowing: No Dry Mouth: No Chest Pain: No Leg Swelling: No A Cough: No Shortness of Breath: No Pain with Breathing: No Heartburn: No Abdominal Pain: No Diarrhea: No Black Tarry Stools: No Blood in Urine: No Pain or Burning with Urination: No Joint Pain or Stiffness: No Muscle Weakness: No Muscle Aches: No Joint Swelling: No Morning Stiffness in Joints: No A Rash: No Skin Color Changes: No Hair Loss: No Nail Changes: No Headaches: No Numbness: No Memory Loss: No Swollen Glands: No Current Outpatient Medications Medication Sig golimumab (SIMPONI ARIA INTRAVENOUS) Inject intravenously. IV treatment every 8 weeks. No current facility-administered medications for this visit. PHYSICAL EXAM: CONSTITUTIONAL: Well-appearing, in NAD. EYES: No scleral icterus or conjunctivitis NEURO: Awake, alert and oriented Imaging reviewed MRI lumbar 05/2020 L1-L2: No disc herniation, central spinal stenosis, or foraminal compromise. L2-L3: No disc herniation, central spinal stenosis, or foraminal compromise. L3-L4: No disc herniation, central spinal stenosis, or foraminal compromise. L4-L5: No disc herniation, central spinal stenosis, or foraminal compromise. L5-S1: No disc herniation, central spinal stenosis, or foraminal compromise. MRI thoracic 05/2020 Alignment is normal. Vertebral bodies are within normal limits in height and marrow signal. Paraspinal soft tissues are within normal limits. Thoracic intervertebral discs are within normal limits in height and signal for age. No significant disc herniation. No significant thoracic canal stenosis or cord compression. Thoracic cord is within normal limits in caliber and signal. MRI cervical 05/2020 IMPRESSION: No significant spinal stenosis is noted in the cervical spine. No cord signal abnormality or enhancement seen. Minor degenerative changes as described above. Labs reviewed and discussed with the patient: Component Latest Ref Rng & Units 07/11/2021 WBC 3.70 - 11.00 k/uL 5.89 RBC 3.90 - 5.20 m/uL 4.92 Hemoglobin 11.5 - 15.5 g/dL 13.4 Hematocrit 36.0 - 46.0 % 40.9 MCV 80.0 - 100.0 fL 83.1 MCH 26.0 - 34.0 pg 27.2 MCHC 30.5 - 36.0 g/dL 32.8 RDW-CV 11.5 - 15.0 % 13.7 Platelet Count 150 - 400 k/uL 384 MPV 9.0 - 12.7 fL 10.9 Neut% % 50.6 Abs Neut (ANC) 1.45 - 7.50 k/uL 2.98 Lymph% % 36.0 Abs Lymph 1.00 - 4.00 k/uL 2.12 Pitkin% % 8.0 Abs Pitkin <0.87 k/uL 0.47 Eosin% % 4.2 Abs Eosin <0.46 k/uL 0.25 Baso% % 1.2 Abs Baso <0.11 k/uL 0.07 Immature Gran % % 0.0 IMMATURE GRANS (ABS) <0.10 k/uL <0.03 NRBC /100 WBC 0.0 Absolute nRBC <0.01 k/uL <0.01 DTYPE Auto Creatinine 0.58 - 0.96 mg/dL 0.93 eGFR >=60 mL/min/1.73m 87 CRP <0.9 mg/dL <0.3 WSR 0 - 20 mm/hr 12 Albumin 3.9 - 4.9 g/dL 4.2 ALT 7 - 38 U/L 8 AST 13 - 35 U/L 15 Component Latest Ref Rng & Units 10/18/2020 WBC 3.70 - 11.00 k/uL 4.03 RBC 3.90 - 5.20 m/uL 4.73 Hemoglobin 11.5 - 15.5 g/dL 13.0 Hematocrit 36.0 - 46.0 % 40.2 MCV 80.0 - 100.0 fL 85.0 MCH 26.0 - 34.0 pG 27.5 MCHC 30.5 - 36.0 g/dL 32.3 RDW-CV 11.5 - 15.0 % 13.2 Platelet Count 150 - 400 k/uL 413 (H) MPV 9.0 - 12.7 fL 10.3 Neut% % 42.0 Abs Neut (ANC) 1.45 - 7.50 k/uL 1.69 Lymph% % 43.9 Abs Lymph 1.00 - 4.00 k/uL 1.77 Pitkin% % 8.9 Abs Pitkin <0.87 k/uL 0.36 Eosin% % 4.2 Abs Eosin <0.46 k/uL 0.17 Baso% % 1.0 Abs Baso <0.11 k/uL 0.04 Nucleated Reds 0 /100 WBC 0.0 Absolute nRBC <0.01 k/uL <0.01 Diff Type Auto Diff Protein, Total 6.3 - 8.0 g/dL 7.6 Albumin 3.9 - 4.9 g/dL 4.4 Calcium 8.5 - 10.2 mg/dL 10.1 Bilirubin, Total 0.2 - 1.3 mg/dL 0.3 Alkaline Phosphatase 34 - 123 U/L 73 AST 13 - 35 U/L 17 Glucose 74 - 99 mg/dL 88 BUN 7 - 21 mg/dL 13 Creatinine 0.58 - 0.96 mg/dL 1.00 (H) Sodium 136 - 144 mmol/L 137 Potassium 3.7 - 5.1 mmol/L 4.0 Chloride 97 - 105 mmol/L 103 CO2 22 - 30 mmol/L 24 Anion Gap 9 - 18 mmol/L 10 ALT 7 - 38 U/L 5 (L) eGFR- >60 eGFR-All Other Races . >60 TB Nil IU/mL 0.05 TB1 Ag minus Nil <0.35 IU/mL 0.00 TB2 Ag minus Nil <0.35 IU/mL 0.00 Mitogen minus Nil 8.82 TB Result Negative Negative TB Interpretation No evidence of current or previous infection with Mycobacterium tuberculosis. Hep B Core Ab, Total Negative Negative Hep C Antibody IA Negative Negative Hep B Surface Ag Negative Negative Hep B Surface Ab, Qual Negative Positive (A) WSR 0 - 20 mm/hr 10 CRP <0.9 mg/dL <0.3 CCP Antibody, IgG <20 Units >250 (H) Rheumatoid Factor <16 IU/mL 78 (H) Assessment: 25 year old female with hx of seropositive RA dx 2018 previously on in remission on MTX 8tabs/wk and Simponi (12/2019)- stopped 06/2020 Restarted 09/2020 for maintenance of remission, pt doing well no pain/tender, mild mcp swelling Plan: - Cont. Simponi 2 mg/kg q8w. R/b/a of med discussed. -she has received both doses of the covid vaccine and the booster. - pneumonia vaccine due 2022. She was previously advised (per Dr. Carmona) to get shingrix due to immunosuppressed state RTC in 4 mo to [facility] care with new provider Visit time was 5 minutes Marko Limon APRN.HALEY documented in this encounter [facility] 07-11-2021 History of Presen t illness Narrative PRE-INFUSION SCREENING Since your last infusion have you: Had any major change in your health? No Been to the emergency room? No Been hospitalized? No Had any infections? No Taken any antibiotics? No Had surgery or do you have upcoming surgery? No In the past 7 days have you had: Fevers/chills/night sweats? No New cough or cold symptoms (including sore throat)? No Nausea, vomiting, diarrhea? No Unusual swelling in your ankles or feet? No Burning/blood with urination or urinary frequency? No New weakness, numbness, stumbling, or falls? No New rash or open sores? No Patient offered bathroom assistance throughout treatment? Yes documented in this encounter [facility] documented as of this encounter (statuses as of 07/11/2021) [facility] History of Past illness Narrative* Problem Noted Date Resolved Date Family history of diabetes mellitus (DM) 013 03/28/2021 Asthma 01/07/2004 03/28/2021 Overview: Resolved - outgrew documented as of this encounter (statuses as of 07/12/2021) [facility] History of Past illness Narrative* Problem Noted Date Resolved Date Family history of diabetes mellitus (DM) 013 03/28/2021 Asthma 01/07/2004 03/28/2021 Overview: Resolved - outgrew documented as of this encounter (statuses as of 09/01/2021) [facility] History of Past illness Narrative* Problem Noted Date Resolved Date Family history of diabetes mellitus (DM) 013 03/28/2021 Asthma 01/07/2004 03/28/2021 Overview: Resolved - outgrew documented as of this encounter (statuses as of 11/25/2021) [facility] History of Past illness Narrative* Problem Noted Date Resolved Date Family history of diabetes mellitus (DM) 013 03/28/2021 Asthma 01/07/2004 03/28/2021 Overview: Resolved - outgrew documented as of this encounter (statuses as of 12/20/2021) [facility] History of Past illness Narrative* Problem Noted Date Resolved Date Family history of diabetes mellitus (DM) 013 03/28/2021 Asthma 01/07/2004 03/28/2021 Overview: Resolved - outgrew documented as of this encounter (statuses as of 12/22/2021) [address]23-2013 History of Past illness Narrative* Problem Noted Date Resolved Date Family history of diabetes mellitus (DM) 013 03/28/2021 Asthma 01/07/2004 03/28/2021 Overview: Resolved - outgrew documented as of this encounter (statuses as of 01/09/2022) [facility] History of Past illness Narrative* Problem Noted Date Resolved Date Family history of diabetes mellitus (DM) 013 03/28/2021 Asthma 01/07/2004 03/28/2021 Overview: Resolved - outgrew documented as of this encounter (statuses as of 03/12/2022) [facility] History of Past illness Narrative* Problem Noted Date Resolved Date Family history of diabetes mellitus (DM) 013 03/28/2021 Asthma 01/07/2004 03/28/2021 Overview: Resolved - outgrew documented as of this encounter (statuses as of 03/12/2022) [facility] History of Past illness Narrative* Problem Noted Date Resolved Date Family history of diabetes mellitus (DM) 013 03/28/2021 Asthma 01/07/2004 03/28/2021 Overview: Resolved - outgrew documented as of this encounter (statuses as of 03/13/2022) [facility] History of Past illness Narrative* Problem Noted Date Resolved Date Family history of diabetes mellitus (DM) 013 03/28/2021 Asthma 01/07/2004 03/28/2021 Overview: Resolved - outgrew documented as of this encounter (statuses as of 03/15/2022) [facility] History of Past illness Narrative* Problem Noted Date Resolved Date Family history of diabetes mellitus (DM) 013 03/28/2021 Asthma 01/07/2004 03/28/2021 Overview: Resolved - outgrew documented as of this encounter (statuses as of 04/12/2022) [address] History of Past illness Narrative* Problem Noted Date Resolved Date Family history of diabetes mellitus (DM) 013 03/28/2021 Asthma 01/07/2004 03/28/2021 Overview: Resolved - outgrew documented as of this encounter (statuses as of 04/12/2022) [facility] History of Past illness Narrative* Problem Noted Date Resolved Date Family history of diabetes mellitus (DM) 013 03/28/2021 Asthma 01/07/2004 03/28/2021 Overview: Resolved - outgrew documented as of this encounter (statuses as of 04/13/2022) [facility] History of Past illness Narrative* Problem Noted Date Resolved Date Family history of diabetes mellitus (DM) 013 03/28/2021 Asthma 01/07/2004 03/28/2021 Overview: Resolved - outgrew documented as of this encounter (statuses as of 04/16/2022) [facility] History of Past illness Narrative* Problem Noted Date Resolved Date Family history of diabetes mellitus (DM) 013 03/28/2021 Asthma 01/07/2004 03/28/2021 Overview: Resolved - outgrew documented as of this encounter (statuses as of 04/16/2022) [facility] History of Past illness Narrative* Problem Noted Date Resolved Date Family history of diabetes mellitus (DM) 013 03/28/2021 Asthma 01/07/2004 03/28/2021 Overview: Resolved - outgrew documented as of this encounter (statuses as of 04/19/2022) [facility] History of Past illness Narrative* Problem Noted Date Resolved Date Family history of diabetes mellitus (DM) 013 03/28/2021 Asthma 01/07/2004 03/28/2021 Overview: Resolved - outgrew documented as of this encounter (statuses as of 04/26/2022) [address] History of Past illness Narrative* Problem Noted Date Resolved Date Family history of diabetes mellitus (DM) 013 03/28/2021 Asthma 01/07/2004 03/28/2021 Overview: Resolved - outgrew documented as of this encounter (statuses as of 06/28/2022) [facility] History of Past illness Narrative* Problem Noted Date Resolved Date Family history of diabetes mellitus (DM) 013 03/28/2021 Asthma 01/07/2004 03/28/2021 Overview: Resolved - outgrew documented as of this encounter (statuses as of 07/25/2022) [facility] History of Past illness Narrative* Problem Noted Date Resolved Date Family history of diabetes mellitus (DM) 013 03/28/2021 Asthma 01/07/2004 03/28/2021 Overview: Resolved - outgrew documented as of this encounter (statuses as of 07/31/2022) [address] History of Past illness Narrative* Problem Noted Date Resolved Date Family history of diabetes mellitus (DM) 013 03/28/2021 Asthma 01/07/2004 03/28/2021 Overview: Resolved - outgrew documented as of this encounter (statuses as of 07/31/2022) [address]2013 History of Past illness Narrative* Problem Noted Date Resolved Date Family history of diabetes mellitus (DM) 013 03/28/2021 Asthma 01/07/2004 03/28/2021 Overview: Resolved - outgrew documented as of this encounter (statuses as of 08/09/2022) [place] [id number] History of Past illness Narrative* Problem Noted Date Diagnosed Date Resolved Date Family history of diabetes mellitus (DM) 09/16/2012 03/28/2021 Asthma 01/07/2004 03/28/2021 Overview: Resolved - outgrew documented as of this encounter (statuses as of 09/13/2022) [address]2013 History of Past illness Narrative* Problem Noted Date Diagnosed Date Resolved Date Family history of diabetes mellitus (DM) 09/16/2012 03/28/2021 Asthma 01/07/2004 03/28/2021 Overview: Resolved - outgrew documented as of this encounter (statuses as of 10/26/2022) [place] [id number] History of Past illness Narrative* Problem Noted Date Diagnosed Date Resolved Date Family history of diabetes mellitus (DM) 09/16/2012 03/28/2021 Asthma 01/07/2004 03/28/2021 Overview: Resolved - outgrew documented as of this encounter (statuses as of 12/31/2022) [facility] Seropositive rheumatoid arthritis (HCC)- Primary Rheumatoid arthritis Encounter for long-term (current) use of medications Encounter for long-term (current) use of other medications Seropositive rheumatoid arthritis (HCC)- Primary Rheumatoid arthritis Encounter for long-term (current) use of medications Encounter for long-term (current) use of other medications [facility] Diagnosis Seropositive rheumatoid arthritis (HCC)- Primary Rheumatoid arthritis Encounter for long-term (current) use of medications Encounter for long-term (current) use of other medications [facility] Diagnosis Enlarged thyroid Goiter, unspecified Globus sensation Gastrointestinal malfunction arising from mental factors [facility] Diagnosis Pain of right upper extremity- Primary Tingling of right upper extremity Right wrist pain Pain in joint, forearm documented in this encounter [facility]* Diagnosis Pain in left hand- Primary Right wrist pain Pain in joint, forearm Tingling of right upper extremity Pain of right upper extremity Pain in right hand Paresthesia of skin Disturbance of skin sensation [facility] Diagnosis Encounter for dental examination- Primary Dental examination documented in this encounter [facility] note* Diagnosis Upper abdominal pain- Primary Abdominal pain, other specified site Nausea Nausea alone documented in this encounter [facility] note* Diagnosis Upper abdominal pain Abdominal pain, other specified site Nausea Nausea alone [facility] Diagnosis Upper abdominal pain Abdominal pain, other specified site Nausea Nausea alone [facility] Diagnosis Pre-op evaluation- Primary Preoperative examination, unspecified Seropositive rheumatoid arthritis (HCC) Rheumatoid arthritis [facility] Diagnosis Abdominal pain, unspecified abdominal location documented in this encounter [facility]* Diagnosis Depression, unspecified depression type- Primary KENNY (generalized anxiety disorder) Generalized anxiety disorder [facility] Diagnosis Epigastric pain- Primary Abdominal pain, epigastric documented in [facility] Diagnosis Pain due to dental caries- Primary Unspecified dental caries Pain of gingiva Unspecified gingival and periodontal disease documented in this encounter [facility] Diagnosis Encounter for dental examination- Primary Dental examination Encounter for preventive measure documented in this encounter [facility]* Diagnosis Epigastric pain Abdominal pain, epigastric documented in this encounter [facility] for referral (narrative)* Diagnostic Procedure Only (Routine) - Closed Specialty Diagnoses / Procedures Referred By Solis keita Referred To Contact US IMAGING Diagnoses Enlarged thyroid Globus sensation Procedures US THYROID/PARATHYROID US SOFT TISSUE HEAD & NECK REAL TIME IMGE DOCM Chetna Healy APRN.AGRISCIENCE TECHNOLOGY INSTRUCTOR [address] [place] [address] Us Imaging Referral ID Status Reason Start Date Expiration Date V isits Requested Visits Authorized [id number] Closed Auto-Generate d Referral 11/22/2021 12/22/2022 1 1 [facility] for referral (narrative)* Outpatient Procedure (Routine) - Pending Review Specialty Diagnoses / Procedures Referred By Contac t Referred To Contact [facility] Diagnoses Right wrist pain Tingling of right upper extremity Pain of right upper extremity Procedures EMG(NEURO/NI) NERVE CONDUCTION STUDIES 9-10 STUDIES Chetna Healy APRN.AGRISCIENCE TECHNOLOGY INSTRUCTOR [address] [place] [address] [facility] [address] [place] [address] Referral ID Status Reason Start Date Expiration Date Visits Requested Visits Authorized [id number] Pending Review Auto-Generat ed Referral 12/20/[address] [facility] for referral (narrative)* Diagnostic Procedure Only (Urgent) - Closed Specialty Diagnoses / Procedures Referred By Contac t Referred To Contact US IMAGING Diagnoses Upper abdominal pain Nausea Procedures US ABD RT UPPER QUADRANT US ABDOMINAL REAL TIME W/IMAGE LIMITED Chetna Healy APRN.AGRISCIENCE TECHNOLOGY INSTRUCTOR [address] [place] [address] Us Imaging Referral ID Status Reason Start Date Expiration Date V isits Requested Visits Authorized [id number] Closed Auto-Generate d Referral 03/12/2022 04/11/2023 1 1 [facility] for referral (narrative)* Diagnostic Procedure Only (Urgent) - Closed Specialty Diagnoses / Procedures Referred By Contac t Referred To Contact US IMAGING Diagnoses Upper abdominal pain Nausea Procedures US ABD RT UPPER QUADRANT US ABDOMINAL REAL TIME W/IMAGE LIMITED Chetna Healy, HUMAN RESOURCES ADVISOR.AGRISCIENCE TECHNOLOGY INSTRUCTOR [address] [place] [address] Us Imaging Referral ID Status Reason Start Date Expiration Date V isits Requested Visits Authorized [id number] Closed Auto-Generate d Referral 03/12/2022 04/11/2023 1 1 [facility] for referral (narrative)* Outpatient Procedure (Routine) - Closed Specialty Diagnoses / Procedures Referred By Tooac t Referred To Contact [facility] Diagnoses Abdominal pain, unspecified abdominal location Procedures EGD DIAGNOSTIC ESOPHAGOGASTRODUODENOSC OPY TRANSORAL DIAGNOSTIC Anahi Baig MD [address] [place] [address] [facility] [address] [place] [address] Referral ID Status Reason Start Date Expiration Date V isits Requested Visits Authorized [id number] Closed Auto-Generate d Referral 04/12/2022 04/12/2023 1 1 [facility] for visit Narrative* Diagnostic Procedure Only (Routine) - Closed Specialty Diagnoses / Procedures Referred By Tooac t Referred To Contact US IMAGING Diagnoses Enlarged thyroid Globus sensation Procedures US THYROID/PARATHYROID US SOFT TISSUE HEAD & NECK REAL TIME IMGE DOCM Chetna Healy, EMMA.AGRISCIENCE TECHNOLOGY INSTRUCTOR [address] [place] [address] Us Imaging Referral ID Status Reason Start Date Expiration Date V isits Requested Visits Authorized [id number] Closed Auto-Generate d Referral 11/22/2021 12/22/2022 1 1 [facility] for visit Narrative* Diagnostic Procedure Only (Urgent) - Closed Specialty Diagnoses / Procedures Referred By Tooac t Referred To Contact US IMAGING Diagnoses Upper abdominal pain Nausea Procedures US ABD RT UPPER QUADRANT US ABDOMINAL REAL TIME W/IMAGE LIMITED Chetna Healy, HUMAN RESOURCES ADVISOR.AGRISCIENCE TECHNOLOGY INSTRUCTOR [address] [place] [address] Us Imaging Referral ID Status Reason Start Date Expiration Date V isits Requested Visits Authorized [id number] Closed Auto-Generate d Referral 03/12/2022 04/11/2023 1 1 [facility] Procedure (Routine) - Closed Specialty Diagnoses / Procedures Referred By Solis keita Referred To Contact [facility] Diagnoses Abdominal pain, unspecified abdominal location Procedures EGD DIAGNOSTIC ESOPHAGOGASTRODUODENOSC OPY TRANSORAL DIAGNOSTIC Anahi Baig MD [address] [place] [id number] [facility] [address] [place] [address] Referral ID Status Reason Start Date Expiration Date V isits Requested Visits Authorized [id number] Closed Auto-Generate d Referral 04/12/2022 04/12/2023 1 1 [facility] Medications Administered Section Inactive Administered Medications - up to 3 most recent administrations Medication Order MAR Action Action Date Dose Rate Site golimumab 133.25 mg in NaCl 0.9% 100 mL (SIMPONI ARIA) 133.25 mg (rounded from 133.2 mg = 2 mg/kg/dose 66.6 kg Treatment plan Recorded weight), INTRAVENOUS, at 200 mL/hr, Administer over 30 Minutes, ONCE, 1 dose, On Sat07/11/21 at 1600, Infuse over 30 minutes. Administer with 0.2 micron filter. +++ TOTAL VOLUME = 100 mL +++ New Bag/Syringe/Bottle 07/11/2021 4:02 PM EDT 133.25 mg 200 mL/hr Summary Purpose Family History No Family History Records FoundNo Family History Records FoundNo Family History Records FoundNo Family History Records FoundNo Family History Records FoundNo Family History Records FoundNo Family History Records Found Advance Directives No Advanced Directives Records FoundNo Advanced Directives Records FoundNo Advanced Directives Records FoundNo Advanced Directives Records FoundNo Advanced Directives Records FoundNo Advanced Directives Records FoundNo Advanced Directives Records Found Reason for Referral Specialty Diagnoses / Procedures Referred By Solis keita Referred To Contact CT IMAGING Diagnoses Epigastric pain Procedures CT ABDOMEN W IVCON CT ABDOMEN W/CONTRAST Anahi Baig MD [address] [place] [address] Ct Imaging Referral ID Status Reason Start Date Expiration Date V isits Requested Visits Authorized [id number] Open Auto-Generate d Referral 06/28/2022 07/28/2023 1 1 Specialty Diagnoses / Procedures Referred By Solis t Referred To Contact CT IMAGING Diagnoses Epigastric pain Procedures CT ABDOMEN W IVCON CT ABDOMEN W/CONTRAST Anahi Baig MD [address] [place] [address] [place] [address] Referral ID Status Reason Start Date Expiration Date V isits Requested Visits Authorized [id number] Closed Auto-Generate d Referral 06/29/2022 09/27/2022 1 1 Additional Source Comments Source Comments (unrecognize d section and content) In the event this informatio n is protected by the Federal Confidentiality of Alcohol and Drug Abuse Patient Records regulations: The Federal rules restrict any use of the information to criminally investigate or prosecute any alcohol or drug abuse patient.[facility] the event this information is protected by the Federal Confidentiality of Alcohol and Drug Abuse Patient Records regulations: The Federal rules restrict any use of the information to criminally investigate or prosecute any alcohol or drug abuse patient.[facility] the event this information is protected by the Federal Confidentiality of Alcohol and Drug Abuse Patient Records regulations: The Federal rules restrict any use of the information to criminally investigate or prosecute any alcohol or drug abuse patient.[facility] the event this information is protected by the Federal Confidentiality of Alcohol and Drug Abuse Patient Records regulations: The Federal rules restrict any use of the information to criminally investigate or prosecute any alcohol or drug abuse patient.[facility] the event this information is protected by the Federal Confidentiality of Alcohol and Drug Abuse Patient Records regulations: The Federal rules restrict any use of the information to criminally investigate or prosecute any alcohol or drug abuse patient.[facility] the event this information is protected by the Federal Confidentiality of Alcohol and Drug Abuse Patient Records regulations: The Federal rules restrict any use of the information to criminally investigate or prosecute any alcohol or drug abuse patient.[facility] the event this information is protected by the Federal Confidentiality of Alcohol and Drug Abuse Patient Records regulations: The Federal rules restrict any use of the information to criminally investigate or prosecute any alcohol or drug abuse patient.[facility] the event this information is protected by the Federal Confidentiality of Alcohol and Drug Abuse Patient Records regulations: The Federal rules restrict any use of the information to criminally investigate or prosecute any alcohol or drug abuse patient.[facility] the event this information is protected by the Federal Confidentiality of Alcohol and Drug Abuse Patient Records regulations: The Federal rules restrict any use of the information to criminally investigate or prosecute any alcohol or drug abuse patient.[facility] the event this information is protected by the Federal Confidentiality of Alcohol and Drug Abuse Patient Records regulations: The Federal rules restrict any use of the information to criminally investigate or prosecute any alcohol or drug abuse patient.[facility] the event this information is protected by the Federal Confidentiality of Alcohol and Drug Abuse Patient Records regulations: The Federal rules restrict any use of the information to criminally investigate or prosecute any alcohol or drug abuse patient.[facility] the event this information is protected by the Federal Confidentiality of Alcohol and Drug Abuse Patient Records regulations: The Federal rules restrict any use of the information to criminally investigate or prosecute any alcohol or drug abuse patient.[facility] the event this information is protected by the Federal Confidentiality of Alcohol and Drug Abuse Patient Records regulations: The Federal rules restrict any use of the information to criminally investigate or prosecute any alcohol or drug abuse patient.[facility] the event this information is protected by the Federal Confidentiality of Alcohol and Drug Abuse Patient Records regulations: The Federal rules restrict any use of the information to criminally investigate or prosecute any alcohol or drug abuse patient.[facility] the event this information is protected by the Federal Confidentiality of Alcohol and Drug Abuse Patient Records regulations: The Federal rules restrict any use of the information to criminally investigate or prosecute any alcohol or drug abuse patient.[facility] the event this information is protected by the Federal Confidentiality of Alcohol and Drug Abuse Patient Records regulations: The Federal rules restrict any use of the information to criminally investigate or prosecute any alcohol or drug abuse patient.[facility] the event this information is protected by the Federal Confidentiality of Alcohol and Drug Abuse Patient Records regulations: The Federal rules restrict any use of the information to criminally investigate or prosecute any alcohol or drug abuse patient.[facility] the event this information is protected by the Federal Confidentiality of Alcohol and Drug Abuse Patient Records regulations: The Federal rules restrict any use of the information to criminally investigate or prosecute any alcohol or drug abuse patient.[facility] the event this information is protected by the Federal Confidentiality of Alcohol and Drug Abuse Patient Records regulations: The Federal rules restrict any use of the information to criminally investigate or prosecute any alcohol or drug abuse patient.[facility] the event this information is protected by the Federal Confidentiality of Alcohol and Drug Abuse Patient Records regulations: The Federal rules restrict any use of the information to criminally investigate or prosecute any alcohol or drug abuse patient.[facility] the event this information is protected by the Federal Confidentiality of Alcohol and Drug Abuse Patient Records regulations: The Federal rules restrict any use of the information to criminally investigate or prosecute any alcohol or drug abuse patient.[facility] the event this information is protected by the Federal Confidentiality of Alcohol and Drug Abuse Patient Records regulations: The Federal rules restrict any use of the information to criminally investigate or prosecute any alcohol or drug abuse patient.[facility] the event this information is protected by the Federal Confidentiality of Alcohol and Drug Abuse Patient Records regulations: The Federal rules restrict any use of the information to criminally investigate or prosecute any alcohol or drug abuse patient.[facility] the event this information is protected by the Federal Confidentiality of Alcohol and Drug Abuse Patient Records regulations: The Federal rules restrict any use of the information to criminally investigate or prosecute any alcohol or drug abuse patient.[facility] the event this information is protected by the Federal Confidentiality of Alcohol and Drug Abuse Patient Records regulations: The Federal rules restrict any use of the information to criminally investigate or prosecute any alcohol or drug abuse patient.[facility] the event this information is protected by the Federal Confidentiality of Alcohol and Drug Abuse Patient Records regulations: The Federal rules restrict any use of the information to criminally investigate or prosecute any alcohol or drug abuse patient.[facility] Reason for Visit (unrecogniz ed section and content) Specialty Diagnoses / Procedures Referred By Contac t Referred To Contact Diagnoses Seropositive rheumatoid arthritis (HCC) Procedures GOLIMUMAB FOR [place] 1[place] [address] [place] [address] [address] [facility] [address] [address] [place] [address] Referral ID Status Reason Start Date Expiration Date V isits Requested Visits Authorized [id number] Authorized 08/02/2020 08/02/2021 7 7 Reason Comments Seropositive rheumatoid arthritis Reason Comments hand and elbow pain and coldness Reason Onset Date Comments EMG 12/22/2021 Specialty Diagnoses / Procedures Referred By Contac t Referred To Contact [facility] Diagnoses Right wrist pain Tingling of right upper extremity Pain of right upper extremity Procedures EMG(NEURO/NI) NERVE CONDUCTION STUDIES 9-10 STUDIES OlderChetna, HUMAN RESOURCES ADVISOR.AGRISCIENCE TECHNOLOGY INSTRUCTOR [address] [place] [address] [facility] [address] [place] [address] Referral ID Status Reason Start Date Expiration Date V isits Requested Visits Authorized [id number] Closed Auto-Generat ed Referral Clearance Not Met - Admin/Chairm an/Director Advise to Postpone/Res chedule or Not Proceed 12/22/2021 02/24/2022 1 1 Reason Comments New Patient Reason Comments Abdominal Pain Reason Comments Abdominal Pain Reason Comments Consult Abdominal Pain Specialty Diagnoses / Procedures Referred By Contac t Referred To Contact Gastroenterology Diagnoses Upper abdominal pain Nausea Procedures CONSULT TO GASTROENTEROLOGY OFFICE/OUTPATIENT NEW HIGH MDM 60-74 MINUTES Chetna Healy, HUMAN RESOURCES ADVISOR.AGRISCIENCE TECHNOLOGY INSTRUCTOR [address] [place] [address] Referral ID Status Reason Start Date Expiration Date V isits Requested Visits Authorized [id number] Closed PCP Requested Referral 03/14/2022 03/14/2023 1 1 Reason Comments Patient Update Reason Comments Anesthesia Consult Reason Onset Date Comments Refill Request 04/16/2022 Reason Comments Depression Reason Comments Established Patient Follow-up for abdomi nal pain Reason Comments Returning Patient's Call Reason Comments Dental Continuing Treatment Reason Comments Appointment Confirmation Reason Comments Dental Hygiene Visit Reason Comments Radiology CT Specialty Diagnoses / Procedures Referred By Solis keita Referred To Contact CT IMAGING Diagnoses Epigastric pain Procedures CT ABDOMEN W IVCON CT ABDOMEN W/CONTRAST Anahi Baig MD [address] [place] [address] [place] [address] Referral ID Status Reason Start Date Expiration Date V isits Requested Visits Authorized [id number] Closed Auto-Generate d Referral 06/29/2022 09/27/2022 1 1 Care Teams (unrecognized sec tion and content) [employer] Cross[employer] Guard Relationship Specialty Start Date End Date Travis Alejandro MD [facility] [place] [address] PCP - General Internal Medicine 03/28/21 [employer] Crossing Guard Relationship Specialty Start Date End Date Travis Alejandro MD [address] [place] [address] PCP - General Internal Medicine 03/28/21 School Crossing Guard Relationship Specialty Start Date End Date Travis Alejandro MD [address] [place] [address] PCP - General Internal Medicine 03/28/21 School Crossing Guard Relationship Specialty Start Date End Date Travis Alejandro MD [address] [place] [address] PCP - General Internal Medicine 03/28/21 School Crossing Guard Relationship Specialty Start Date End Date Travis Alejandro MD [address] [place] [address] PCP - General Internal Medicine 03/28/21 School Crossing Guard Relationship Specialty Start Date End Date Travis Alejandro MD [address] [place] [address] PCP - General Internal Medicine 03/28/21 School Crossing Guard Relationship Specialty Start Date End Date Travis Alejandro MD [address] [place] [address] PCP - General Internal Medicine 03/28/21 School Crossing Guard Relationship Specialty Start Date End Date Travis Alejandro MD [address] [place] [address] PCP - General Internal Medicine 03/28/21 School Crossing Guard Relationship Specialty Start Date End Date Travis Alejandro MD [address] [place] [address] PCP - General Internal Medicine 03/28/21 School Crossing Guard Relationship Specialty Start Date End Date Travis Alejandro MD [facility] [place] [address] PCP - General Internal Medicine 03/28/21 School Crossing Guard Relationship Specialty Start Date End Date Travis Alejandro MD [address] [place] [address] PCP - General Internal Medicine 03/28/21 School Crossing Guard Relationship Specialty Start Date End Date Travis Alejandro MD [address] [place] [address] PCP - General Internal Medicine 03/28/21 School Crossing Guard Relationship Specialty Start Date End Date Travis Alejandro MD [address] [place] [address] PCP - General Internal Medicine 03/28/21 School Crossing Guard Relationship Specialty Start Date End Date Travis Alejandro MD [address] [place] [address] PCP - General Internal Medicine 03/28/21 School Crossing Guard Relationship Specialty Start Date End Date Travis Alejandro MD [address] [facility], [place] [address] PCP - General Internal Medicine 03/28/21 School Crossing Guard Relationship Specialty Start Date End Date Travis Alejandro MD [address] [facility], [place] [address] PCP - General Internal Medicine 03/28/21 School Crossing Guard Relationship Specialty Start Date End Date Travis Alejandro MD [address] [facility], [place] [address] PCP - General Internal Medicine 03/28/21 School Crossing Guard Relationship Specialty Start Date End Date Travis Alejandro MD [address] [facility], [place] [address] PCP - General Internal Medicine 03/28/21 INFORMATION SOURCE (unrecogn ized section and content) DATE CREATED AUTHOR AUTHOR'S ORGANIZ ATION 08/05/[address] [facility] DATE CREATED AUTHOR AUTHOR'S ORGANIZ ATION 09/13/2022 [facility] DATE CREATED AUTHOR AUTHOR'S ORGANIZ ATION 09/29/2022 [facility] DATE CREATED AUTHOR AUTHOR'S ORGANIZ ATION 10/29/2022 [facility] DATE CREATED AUTHOR AUTHOR'S ORGANIZ ATION 11/29/2022 [facility] DATE CREATED AUTHOR AUTHOR'S ORGANIZ ATION 02/09/2023 [facility] <item> Privacy Markings (unrecogniz ed section and content) Section Author: Shameka Dailey PROHIBITION ON REDISCLOSURE OF CONFIDENTIAL INFORMATION This notice accompanies a disclosure of information concerning a client made to you with the consent of such client. FOR RECORDS PERTAINING TO PATIENTS WHO ARE OR HAVE BEEN ENROLLED IN A CHEMICAL DEPENDENCY/SUBSTANCEABUSE PROGRAM, SOME INFORMATION MAY BE OMITTED. This clinical summary was aggregated from multiple sources. Caution should be exercised in using it in the provision of clinical care. This summary normalizes information from multiple sources, and as a consequence, information in this document may materially change the coding, format and clinical context of patient data. In addition, data may be omitted in some cases. CLINICAL DECISIONS SHOULD BE BASED ON THE PRIMARY CLINICAL RECORDS. [facility] [employer] [facility]. provides no warranty or guarantee of the accuracy or completeness of information in this document.
[2023-04-01 12:22] LABS: Absolute Lymphocyte Count 1.87 X10^3/uL (0.83-4.51); Basophil# 0.06 X10^3/uL; Basophil% 1.7 % (0-1); Eosinophil# 0.22 X10^3/uL; Eosinophils% 6.4 % (0-5); Hematocrit 36.8 % (37-47); Hemoglobin 12.2 g/dL (12.0-15.0); Lymphocyte # 1.87 X10^3/ul (0.83-4.51); Mean Corp Hgb Conc 33.2 g/dL (32-36); Mean Corpuscular Hgb 27.6 pg (27.0-32.0); Mean Corpuscular Volume 83.3 fL (81-99); Mean Platelet Vol. 10.4 fl (6.2-12.0); Monocyte# 0.29 X10^3/uL; Monocyte% 8.4 % (0-10); NRBC Flagged by Analyzer 0 % (0-5); Neutrophil # 1.01 X10^3/uL (2.7-7.7); Neutrophil % 29.2 % (47-70); Platelet Count 386 K/mm3 (150-450); RBC Distribution Width CV 13.2 % (11.6-14.6); RBC Distribution Width SD 39.4 fl (35.1-43.9); Red Blood Count 4.42 M/mm3 (4.2-5.4); White Blood Count 3.5 K/mm3 (4.4-11.0)
[2023-04-01 12:56] LABS: Vitamin B12 680 pg/mL (211-911); Vitamin D,25 Hydroxy 17.6 ng/mL
[2023-04-01 13:15] LABS: ALB/GLOB Ratio 0.9 RATIO (0.9-2.4); AST(SGOT) 10 U/L (15-37); Alanine Aminotransfer ALT/SGPT 21 U/L (13-56); Albumin, Serum 3.7 g/dL (3.2-5.0); Alkaline Phosphatase 60 U/L (45-117); Anion Gap 9 (5-15); BUN 13 mg/dL (7-18); BUN/Creat Ratio 13.1 RATIO (10-20); Calcium,Total 8.8 mg/dL (8.5-10.1); Chloride 105 mmol/L (98-107); Cholesterol 168 mg/dL (200); Creatinine, Serum 0.99 mg/dL (0.55-1.02); EST Glomerular Filtration Rate 70 mL/min (>60); Est Glom Filt Rate - Afr Amer 85 mL/min (>60); Free T3 2.3 pg/mL (2.18-3.98); Globulin 4.2 g/dL (2.2-4.2); Glucose 89 mg/dL (74-106); High Density Lipoprotein 63 mg/dL; Potassium 3.3 mmol/L (3.5-5.1); Protein, Total 7.9 g/dL (6.4-8.2); Sodium Level 139 mmol/L (136-145); Thyroid Stim Hormone (TSH) 1.31 uIU/mL (0.358-3.74); Triglycerides 60 mg/dL; Very Low Density Lipoprotein 12 mg/dL (5-40)
[2023-04-01 13:34] LABS: Hemoglobin A1c 5.2 % (3.8-5.6)
[2023-04-10 06:08] LABS: Thyroglobulin Antibody < 1.0 IU/mL (0.0-0.9); Thyroid Peroxidase AB 32 IU/mL (0-34); VITAMIN B6 60.5 ug/L (3.4-65.2); Vitamin B1, Thiamine 60.4 nmol/L (66.5-200.0)
== END | disposition home or self-care (01) ==
PROVIDERS: PCP Nurse Practitioner; Referring Provider Nurse Practitioner Family; Visit Provider Nurse Practitioner Family
DX: M79.7 Fibromyalgia (principal); M06.849 Other specified rheumatoid arthritis, unspecified hand; R53.82 Chronic fatigue, unspecified; G43.109 Migraine with aura, not intractable, without status migrainosus; G90.8 Other disorders of autonomic nervous system; K30 Functional dyspepsia; F32.A Depression, unspecified; F41.9 Anxiety disorder, unspecified; G47.00 Insomnia, unspecified; R61 Generalized hyperhidrosis; H93.233 Hyperacusis, bilateral; R29.818 Other symptoms and signs involving the nervous system
CPT/HCPCS: 36415; 80053; 80061; 82306; 82607; 83036; 84207; 84425; 84439; 84443; 84481; 85025; 86376; 86800

== ENCOUNTER → 2023-05-23 | Outpatient (CLI) | payer MEDICAID, SELFPAY ==
[2023-05-23 12:31] LABS: Magnesium 2.4 mg/dL (1.6-2.6)
[2023-05-28 20:07] LABS: CMV Acute Antibody IgM < 30.0 AU/mL (0.0-29.9); CMV Antibody IgG < 0.60 U/mL (0.00-0.59); Coxsackie A Type 16 IgM Negative titer (Neg:<1:10); Coxsackie A Type 24 IgM Negative titer (Neg:<1:10); Coxsackie A Type 7 IgM Negative titer (Neg:<1:10); Coxsackie A Type 9 IgM Negative titer (Neg:<1:10); EBV Acute VCA IgM < 36.0 U/mL (0.0-35.9); EBV Nuclear Antigen IgG > 600.0 U/mL (0.0-17.9); EBV-VCA IgG > 600.0 U/mL (0.0-17.9); G6PD Quant Test 210 (155-399); Red Blood Cell Count Test/G6PD 4.77 x10E6/uL (3.77-5.28)
[2023-05-30 14:09] LABS: Arsenic 7245 < 1 ug/L (0-9); Lead, Blood < 1.0 ug/dL (0.0-3.4); Mercury, Blood 85324 < 1.0 ug/L (0.0-14.9)
== END | disposition home or self-care (01) ==
LOC: BIMLAB 08:32
PROVIDERS: PCP Nurse Practitioner; Visit Provider Nurse Practitioner Family
DX: E61.7 Deficiency of multiple nutrient elements (principal); M06.849 Other specified rheumatoid arthritis, unspecified hand; M79.7 Fibromyalgia; R53.82 Chronic fatigue, unspecified; G43.109 Migraine with aura, not intractable, without status migrainosus; G90.A Postural orthostatic tachycardia syndrome [POTS]; K30 Functional dyspepsia; F32.A Depression, unspecified; F41.9 Anxiety disorder, unspecified; G47.00 Insomnia, unspecified; R29.818 Other symptoms and signs involving the nervous system; H93.233 Hyperacusis, bilateral; A44.0 Systemic bartonellosis
CPT/HCPCS: 82175; 83655; 83825; 36415; 82955; 83735; 84590; 86644; 86645; 86658; 86664; 86665

== ENCOUNTER → 2023-09-10 | Outpatient (CLI) | payer MEDICAID, SELFPAY | END | disposition home or self-care (01) | LOC: BIMLAB 08:18 | PROVIDERS: PCP Nurse Practitioner; Referring Provider Nurse Practitioner Family; Visit Provider Nurse Practitioner Family | DX: E61.7 Deficiency of multiple nutrient elements (principal) | CPT/HCPCS: 36415 ==

== ENCOUNTER 2023-09-29 19:08 | Emergency (ER) | payer OTHER, SELFPAY ==
[2023-09-29 19:09] VITALS: BP 123/95; PULSE 74; RESP 16; TEMP 36.2; O2SAT 100; BMI 24.8
--- NOTE | 2023-09-29 19:28 | EDS_ITS ---
HPI History of Present Illness Chief Complaint: General Illness [facility] Medical History (Updated 09/29/23 @ 19:18 by Nayeli Elaine) Bartonella infection Rheumatoid arthritis Home Medications ?Medication ?Instructions ?Recorded ?Last Taken ?Type fluconazole 100 mg tablet 100 mg PO DAILY 09/29/23 Unknown History (Diflucan) methylene blue 65 mg tablet 50 mg PO BID 09/29/23 Unknown History nitrofurantoin macrocrystal 100 mg 100 mg PO BID 7 days #14 caps 09/29/23 Unknown Rx capsule ondansetron 4 mg disintegrating 4 mg PO Q8H PRN PRN Nausea #10 tabs 09/29/23 Unknown Rx tablet Allergy/AdvReac Type Severity Reaction Status Date / Time infliximab (From RemFortscalede) AdvReac palpitation Verified 09/29/23 19:12 s Social History (Updated 04/06/22 @ 07:[address] Tommy Gould MD) household members: none Smoking Status: Never smoker substance use type: does not use EXAM Physical Exam Const Vital Signs: 09/29/23 19:09 09/29/23 19:21 09/29/23 20:11 Temperature 97.1 F L 97.9 F Temperature Source Temporal Temporal Pulse Rate 74 66 Respiratory Rate 16 16 Respiratory Effort Normal Respiratory Pattern Normal Blood Pressure 123/95 H 113/82 H Blood Pressure Mean 104 92 Pulse Ox 100 Oxygen Delivery Method Room Air Room Air 09/29/23 21:00 Temperature 98 F Temperature Source Temporal Pulse Rate 84 Respiratory Rate 16 Respiratory Effort Respiratory Pattern Blood Pressure 108/78 Blood Pressure Mean 88 Pulse Ox 99 Oxygen Delivery Method Room Air MDM MDM MDM Narrative Medical decision making narrative: HISTORY OF PRESENT ILLNESS: 27-year-old female presents with dizziness, nausea and diaphoresis. She states the symptoms began approximate 6 hours prior to arrival. They have improved slightly but still notes lightheadedness. Notes nausea but no vomiting. Denies chest pain or palpitations. Notes she is to concentrate to breathe. But denies dyspnea or shortness of breath. Denies leg swelling. States she denies feel this way when she is on her menstrual cycle. She notes she started her period today. She denies any other bleeding diathesis. Patient denies any urinary com plaints. Denies headache. REVIEW OF SYSTEMS: Pertinent positives: Dizziness, nausea and diaphoresis Pertinent negatives: Chest pain, shortness of breath, abdominal pain, headache. PHYSICAL EXAM: Nursing triage notes reviewed, Vital signs reviewed Constitutional: please see [facility] HENT: MMM Eyes: Pupils equal round and reactive to light, Extraocular muscles intact Neck: No stridor, no JVD, full neck ROM Lungs: Clear to auscultation, No wheezing or rales. No increased work of breathing, no conversational dyspnea, no accessory muscle use, no nasal flaring. No respiratory distress noted Heart: Regular rate and rhythm, No murmurs, No rubs and No gallops, 2+ distal pulses (radial, femoral, posterior tibial) in all extremities Abdomen: Soft, there is no tenderness, rigidity, rebound or guarding, no obvious peritoneal signs, no palpable pulsatile abdominal masses, no auscultated abdominal bruit : No CVAT Extremities: No edema Neuro: Alert and oriented x3, neuro exam at baseline, cranial nerves II through XII are intact. No pain with extraocular muscle movement. There is negative test of skew. 5 of 5 strength in upper and lower extremities in flexion extension. Intact sensation to light touch in upper and lower extremity dermatomes. No truncal or extremity ataxia. No dysdiadochokinesia. Normal gait. 2+ reflexes in upper and lower extremities. No meningeal signs. N egative Babinski. NIH of 0. Skin: No rash or lesions noted MEDICAL DECISION MAKING: Chief Complaint: Dizziness nausea diaphoresis External records reviewed: Last ED visit 2022 Factors affecting care: vaginal yeast infection, history of chronic Bartonella, rheumatoid arthritis Social determinants of health: Denies drug use History obtained from others: none Consults: none [facility] Narrative: Patient was hemodynamically stable, afebrile and nontoxic-appearing. Exam without focal neurologic deficits. Abdomen soft and nontender. No source of infection noted. Patient overall appears well. I considered the following differential diagnosis: Arrhythmia, anemia, electrolyte disturbance, dehydration, ACS, pneumonia, COVID, flu, ALL IMAGES (IF OBTAINED) HAVE BEEN PERSONALLY REVIEWED AND INTERPRETED BY MYSELF. CBC with no leukocytosis, anemia likely secondary to menstruation, no thrombocytopenia BMP without significant electrolyte abnormalities, there is no sign of metabolic acidosis or endorgan hypoperfusion High-sensitivity troponin is negative, no evidence of myocardial ischemia Urinalysis consistent with likely UTI Urine test is negative The synthesis of the patient's history, physical exam, labs images suggest likely UTI. Will give antibiotics and send for urine culture. 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 The patient and/or family, caregivers agrees with the plan. Shared decision making: I will have a discussion with the patient and or visitors regarding risk/benefits of further testing or admission. They will be made aware of of the risk/benefits inherent in this decision they will be given the opportunity to voice understanding. Total critical care time today provided was at least 0 minutes. This excludes separately billable procedures. Critical care time (if documented) is secondary to the patient having high probability of clinically significant/life threatening deterioration in the patient's condition which required my urgent intervention. Impression: 1. Fatigue 2. UTI 3. Anemia secondary to menstruation Dispo: Discharge home This note was generated with [employer] dictation software. It may contain incorrect words, spelling, and punctuation that were not noted in review of the chart prior to signing. Lab Data Labs: Laboratory Results - last 24 hr 09/29/23 09/29/23 20:25 21:00 WBC 10.9 RBC 3.95 L Hgb 11.1 L Hct 33.6 L MCV 85.1 MCH 28.1 MCHC 33.0 RDW Std Deviation 45.5 H RDW Coeff of Rudolph 14.6 Plt Count 359 MPV 9.9 Immature Gran % (Auto) 0.500 Neut % (Auto) 88.2 H Lymph % (Auto) 6.6 L [place] % (Auto) 3.9 Eos % (Auto) 0.3 Baso % (Auto) 0.5 Absolute Neuts (auto) 9.6 H Absolute Lymphs (auto) 0.72 L Nucleated RBC % 0 Sodium 138 Potassium 3.6 Chloride 107 Carbon Dioxide 27.0 Anion Gap 4 L BUN 9 Creatinine 0.67 Estim Creat Clear Calc 106.95 Est GFR (MDRD) Af Amer 132 Est GFR (MDRD) Non-Af 109 BUN/Creatinine Ratio 13.4 Glucose 119 H Calcium 8.7 Troponin I High Sens < 3 L Urine Color Yellow Urine Clarity Clear Urine pH 7.0 Ur Specific [place] 1.010 Urine Protein 15 H Urine Glucose (UA) Normal Urine Ketones Negative Urine Occult Blood 150 H Urine Nitrite Positive H Urine Bilirubin Negative Urine Urobilinogen Normal Ur Leukocyte Esterase Negative Urine RBC 0 SEEN Urine WBC 0 SEEN Ur Squamous Epith Cells 0 SEEN Urine Bacteria 0 SEEN Urine Mucus 0 SEEN Urine Test Negative Discharge Plan Triage Chief Complaint: General Illness ED Provider: Milo Mc Dx/Rx/DC Orders Prescriptions: New nitrofurantoin macrocrystal 100 mg capsule 100 mg PO BID 7 Days Qty: 14 0RF Rx Instructions: must administer with a meal/food ondansetron 4 mg tablet,disintegrating 4 mg PO Q8H PRN PRN (Reason: Nausea) Qty: 10 0RF No Action fluconazole [Diflucan] 100 mg tablet 100 mg PO DAILY methylene blue 65 mg tablet 50 mg PO BID Primary Care Provider: Chetna Hillman [employer] Referrals: Chetna Hillman [employer], [facility] [Primary Care Provider] - Activity Restrictions/Additional Instructions: Thank you for trusting us with your care today! Please take Tylenol (2 pills, 650 mg), ibuprofen (2 pills, 400 mg) every 6 hours as needed for pain and fever control. Please take antibiotics as prescribed. Please take Zofran as needed for nausea control. Please return to the emergency department if your symptoms change or worsen. Please follow with your primary care physician for further outpatient evaluation and management. Print Language: Malay Disposition Disposition: Home, Self Care
--- NOTE | 2023-09-29 20:05 | EKG12_ITS ---
Test Reason : DYSRHYTHMIA Blood Pressure : / mmHG Vent. Rate : 076 BPM Atrial Rate : 076 BPM P-R Int : 158 ms QRS Dur : 072 ms QT Int : 362 ms P-R-T Axes : 067 071 059 degrees QTc Int : 407 ms Sinus rhythm with marked sinus arrhythmia Otherwise normal ECG Confirmed by James Matthews ([id number]), editor producer INR GONZALEZ ([id number]) on 10/02/2023 9:07:08 AM Referred By: James Matthews Confirmed By:James Matthews
[2023-09-29 20:11] VITALS: BP 113/82; PULSE 66; RESP 16; TEMP 36.6
[2023-09-29] MEDS: 0.9% Normal Saline (1000mL) 1,000 ML 1000 ML IV (20:23)
[2023-09-29] MEDS: Ondansetron 4 MG/2 ML Vial IV (20:23)
[2023-09-29 20:36] LABS: Absolute Lymphocyte Count 0.72 X10^3/uL (0.83-4.51); Absolute Neutrophil Count 9.6 X10^3/uL (2.0-7.7); Basophil# 0.06 X10^3/uL; Basophil% 0.5 % (0-1); Eosinophil# 0.03 X10^3/uL; Eosinophils% 0.3 % (0-5); Hematocrit 33.6 % (37-47); Hemoglobin 11.1 g/dL (12.0-15.0); Lymphocyte # 0.72 X10^3/ul (0.83-4.51); Lymphocyte % 6.6 % (19-41); Mean Corpuscular Hgb 28.1 pg (27.0-32.0); Mean Corpuscular Volume 85.1 fL (81-99); Mean Platelet Vol. 9.9 fl (6.2-12.0); Monocyte# 0.43 X10^3/uL; Monocyte% 3.9 % (0-10); NRBC Flagged by Analyzer 0 % (0-5); Neutrophil # 9.63 X10^3/uL (2.7-7.7); Neutrophil % 88.2 % (47-70); Platelet Count 359 K/mm3 (150-450); RBC Distribution Width CV 14.6 % (11.6-14.6); RBC Distribution Width SD 45.5 fl (35.1-43.9); Red Blood Count 3.95 M/mm3 (4.2-5.4); White Blood Count 10.9 K/mm3 (4.4-11.0)
[2023-09-29 20:50] LABS: Anion Gap 4 (5-15); BUN 9 mg/dL (7-18); BUN/Creat Ratio 13.4 RATIO (10-20); Calcium,Total 8.7 mg/dL (8.5-10.1); Chloride 107 mmol/L (98-107); Creatinine, Serum 0.67 mg/dL (0.55-1.02); EST Glomerular Filtration Rate 109 mL/min (>60); Est Glom Filt Rate - Afr Amer 132 mL/min (>60); Estimated Creatinine Clearance 106.95 ml/min; Glucose 119 mg/dL (74-106); Potassium 3.6 mmol/L (3.5-5.1); Sodium Level 138 mmol/L (136-145); Troponin-I HS < 3 pg/mL (3.0-54.0)
[2023-09-29 21:00] VITALS: BP 108/78; PULSE 84; RESP 16; TEMP 36.6; O2SAT 99
--- NOTE | 2023-09-29 21:03 | RAD_ITS ---
EXAM: XR CHEST, 1 VIEW CLINICAL INDICATION: Fatigue TECHNIQUE: Frontal view of the chest. COMPARISON: No relevant prior studies available. FINDINGS: LUNGS AND PLEURAL SPACES: Unremarkable. No consolidation or edema. No pneumothorax. No effusion. HEART: Unremarkable. Cardiac silhouette not enlarged. MEDIASTINUM: Central airways and mediastinal contour are unremarkable. BONES/JOINTS: Unremarkable. No acute fracture. SOFT TISSUES: Unremarkable. RAD/Chest 1 View (Portable) IMPRESSION: No radiographic evidence of acute cardiopulmonary disease. Electronically Signed: George Bourne MD at 21:51 EDT ,
[2023-09-29 21:05] LABS: Bacteria 0 SEEN /hpf (None Seen); Mucous, Urine 0 SEEN /hpf (<or=2+); Red Blood Cells-Urine 0 SEEN /hpf (0-5); Squamous Epithelial Cells - UA 0 SEEN /hpf (5-10); White Blood Cells 0 SEEN /hpf (0-5)
[2023-09-29 21:10] LABS: Color, Urine Yellow (Yellow); Glucose, Dipstick Normal (Normal); Ketone-Dipstick Negative (Negative); Leukocyte Esterase-Dipstick Negative /ul (Negative); Nitrite-Dipstick Positive (Negative); Occult Blood-Urine 150 /ul (Negative); Protein-Dipstick 15 mg/dl (Negative); Urine Bilirubin Dipstick Negative (Negative); Urine Clarity Clear (Clear); Urine Urobilinogen Normal (Normal)
[2023-09-29 21:15] LABS: Internal QC Validated? YES +Cl - CLEAR BKGD; Pregnancy, Urine Negative Negative; Record Kit Lot#,Urine Preg 772476
[2023-09-29 21:45] VITALS: BP 125/84; PULSE 80; RESP 16; TEMP 36.7; O2SAT 99
== END 2023-09-29 21:58 | disposition home or self-care (01) ==
PROVIDERS: Emergency Provider Emergency Medicine; PCP Nurse Practitioner; Visit Provider Emergency Medicine
DX: N39.0 Urinary tract infection, site not specified (principal); M06.9 Rheumatoid arthritis, unspecified; R42 Dizziness and giddiness; R11.0 Nausea; D64.9 Anemia, unspecified; Z11.52 Encounter for screening for COVID-19
CPT/HCPCS: 71045; 80048; 81001; 81025; 84484; 85025; 87086; 87088; 87631; 93005; 96361; 96374; 99285; J7030; A4216; J2405

== ENCOUNTER → 2023-10-03 | Outpatient (REF) | payer SELFPAY | END | disposition home or self-care (01) | LOC: BIMLAB 08:12 | PROVIDERS: PCP Nurse Practitioner; Referring Provider Nurse Practitioner Family; Visit Provider Nurse Practitioner Family | DX: Z00.00 Encounter for general adult medical examination without abnormal findings (principal) | CPT/HCPCS: 36415 ==